=== PATIENT | male | born 1945 | race Caucasian/White ===

== ENCOUNTER 2016-07-18 12:20 | Outpatient (CLI) | payer MEDICARE, OTHER | END 2016-07-18 12:21 | disposition home or self-care (01) | DX: E03.9 Hypothyroidism, unspecified (principal); R74.8 Abnormal levels of other serum enzymes; E29.1 Testicular hypofunction; E23.0 Hypopituitarism; I25.10 Atherosclerotic heart disease of native coronary artery without angina pectoris ==

== ENCOUNTER 2017-06-16 08:00 | Outpatient (CLI) | payer MEDICARE, OTHER ==
[2017-06-16 13:15] LABS: BASOPHILS % (AUTO) 0.5 %; EOSINOPHILS # (AUTO) 0.5 10^3/uL (0.0-0.7); EOSINOPHILS % (AUTO) 8.5 %; HGB - HEMOGLOBIN 16.3 g/dL (14.0-18.0); LYMPHOCYTES # (AUTO) 1.2 10^3/uL (1.5-3.5); LYMPHOCYTES % (AUTO) 18.7 %; MEAN CORPUSCULAR HEMOGLOBIN 33.5 pg (27.0-31.0); MEAN CORPUSCULAR HGB CONC 34.6 g/dL (32.0-36.0); MEAN CORPUSCULAR VOLUME 96.8 fL (80.0-94.0); MEAN PLATELET VOLUME 9.1 fL (7.4-11.4); MONOCYTES # (AUTO) 0.7 10^3/uL (0.0-1.0); MONOCYTES % (AUTO) 10.5 %; NEUTROPHILS # (AUTO) 3.9 10^3/uL (1.5-6.6); NEUTROPHILS % (AUTO) 61.8 %; PLT - PLATELET COUNT 178 10^3/uL (130-450); RED BLOOD COUNT 4.85 10^6/uL (4.70-6.10); RED CELL DISTRIBUTION WIDTH 12.8 % (12.0-15.0); WHITE BLOOD COUNT 6.2 x10^3/uL (4.8-10.8)
[2017-06-16 13:51] LABS: ALBUMIN 4.5 g/dL (3.2-5.5); ALBUMIN/GLOBULIN RATIO 1.5 (1.0-2.2); ALKALINE PHOSPHATASE 40 IU/L (42-121); ALT ALANINE AMINOTRANSFERASE 64 IU/L (10-60); AST ASPARTATE AMINOTRANSFERASE 47 IU/L (10-42); BILIRUBIN,TOTAL 0.8 mg/dL (0.2-1.0); BUN - BLOOD UREA NITROGEN 18 mg/dL (6-20); CALCIUM 9.5 mg/dL (8.5-10.3); CARBON DIOXIDE - CO2 28 mmol/L (21-32); CHLORIDE 97 mmol/L (101-111); CHOLESTEROL 159 mg/dL; GFR - MDRD 74 (>89); GLUCOSE 112 mg/dL (70-100); HDL CHOLESTEROL 53 mg/dL; LDL CHOLESTEROL,CALCULATED 77 mg/dL; LDL/HDL RATIO 1.5 (<3.6); SODIUM 135 mmol/L (135-145); TOTAL PROTEIN 7.6 g/dL (6.7-8.2); VLDL CHOLESTEROL 29 mg/dL
== END 2017-06-16 08:01 | disposition home or self-care (01) ==
LOC: LAB.WCP 08:00
PROVIDERS: ATTEND Family Medicine
DX: R74.8 Abnormal levels of other serum enzymes (principal); E03.9 Hypothyroidism, unspecified; Z12.5 Encounter for screening for malignant neoplasm of prostate; E29.1 Testicular hypofunction; E23.0 Hypopituitarism; E88.81 Metabolic syndrome and other insulin resistance; I25.10 Atherosclerotic heart disease of native coronary artery without angina pectoris
CPT/HCPCS: 36415; 80053; 80061; 84443; 85025; G0103; 83721; 84153

== ENCOUNTER 2018-09-12 08:12 | Outpatient (CLI) | payer MEDICARE, OTHER ==
[2018-09-12 12:43] LABS: BASOPHILS % (AUTO) 0.7 %; EOSINOPHILS # (AUTO) 0.5 10^3/uL (0.0-0.7); EOSINOPHILS % (AUTO) 8.8 %; HGB - HEMOGLOBIN 16.1 g/dL (14.0-18.0); LYMPHOCYTES # (AUTO) 1.2 10^3/uL (1.5-3.5); LYMPHOCYTES % (AUTO) 22.4 %; MEAN CORPUSCULAR HEMOGLOBIN 33.5 pg (27.0-31.0); MEAN CORPUSCULAR HGB CONC 34.6 g/dL (32.0-36.0); MEAN CORPUSCULAR VOLUME 96.8 fL (80.0-94.0); MONOCYTES # (AUTO) 0.6 10^3/uL (0.0-1.0); MONOCYTES % (AUTO) 10.4 %; NEUTROPHILS # (AUTO) 3.1 10^3/uL (1.5-6.6); NEUTROPHILS % (AUTO) 57.7 %; PLT - PLATELET COUNT 188 10^3/uL (130-450); RED BLOOD COUNT 4.81 10^6/uL (4.70-6.10); RED CELL DISTRIBUTION WIDTH 12.7 % (12.0-15.0); WHITE BLOOD COUNT 5.3 x10^3/uL (4.8-10.8)
[2018-09-12 12:57] LABS: ALBUMIN 4.2 g/dL (3.2-5.5); ALBUMIN/GLOBULIN RATIO 1.4 (1.0-2.2); ALKALINE PHOSPHATASE 51 IU/L (42-121); ALT ALANINE AMINOTRANSFERASE 49 IU/L (10-60); AST ASPARTATE AMINOTRANSFERASE 45 IU/L (10-42); BUN - BLOOD UREA NITROGEN 21 mg/dL (6-20); CALCIUM 9.2 mg/dL (8.5-10.3); CARBON DIOXIDE - CO2 27 mmol/L (21-32); CHLORIDE 99 mmol/L (101-111); CHOL/HDL RATIO 2.8 (<5.0); CHOLESTEROL 171 mg/dL; CREATININE 0.8 mg/dL (0.6-1.2); GFR - MDRD 95 (>89); GLUCOSE 121 mg/dL (70-100); HDL CHOLESTEROL 62 mg/dL; LDL CHOLESTEROL,CALCULATED 78 mg/dL; LDL/HDL RATIO 1.3 (<3.6); SODIUM 133 mmol/L (135-145); TOTAL PROTEIN 7.1 g/dL (6.7-8.2); VLDL CHOLESTEROL 31 mg/dL
[2018-09-12 13:01] LABS: THYROID STIMULATING HORMONE 3.56 uIU/mL (0.34-5.60)
[2018-09-12 13:05] LABS: FREE T4 (FREE THYROXINE) 0.74 ng/dL (0.58-1.64)
== END 2018-09-12 08:13 | disposition home or self-care (01) ==
LOC: LAB.WCP 08:12
PROVIDERS: ATTEND Family Medicine
DX: R74.8 Abnormal levels of other serum enzymes (principal); E03.9 Hypothyroidism, unspecified; E23.0 Hypopituitarism; I25.10 Atherosclerotic heart disease of native coronary artery without angina pectoris
CPT/HCPCS: 36415; 80053; 80061; 83036; 83721; 84403; 84439; 84443; 85025

== ENCOUNTER 2019-06-27 08:00 | Outpatient (CLI) | payer MEDICARE, OTHER ==
[2019-06-27 12:08] LABS: BASOPHILS # (AUTO) 0.1 10^3/uL (0.0-0.1); BASOPHILS % (AUTO) 0.7 %; EOSINOPHILS # (AUTO) 0.6 10^3/uL (0.0-0.7); EOSINOPHILS % (AUTO) 8.4 %; HGB - HEMOGLOBIN 16.3 g/dL (14.0-18.0); LYMPHOCYTES # (AUTO) 1.5 10^3/uL (1.5-3.5); LYMPHOCYTES % (AUTO) 20.7 %; MEAN CORPUSCULAR HEMOGLOBIN 33.6 pg (27.0-31.0); MEAN CORPUSCULAR HGB CONC 34.5 g/dL (32.0-36.0); MEAN CORPUSCULAR VOLUME 97.5 fL (80.0-94.0); MEAN PLATELET VOLUME 10.8 fL (7.4-11.4); MONOCYTES # (AUTO) 0.6 10^3/uL (0.0-1.0); NEUTROPHILS # (AUTO) 4.4 10^3/uL (1.5-6.6); NEUTROPHILS % (AUTO) 60.8 %; PLT - PLATELET COUNT 229 10^3/uL (130-450); RED BLOOD COUNT 4.85 10^6/uL (4.70-6.10); RED CELL DISTRIBUTION WIDTH 12.5 % (12.0-15.0); WHITE BLOOD COUNT 7.2 x10^3/uL (4.8-10.8)
[2019-06-27 12:33] LABS: ALBUMIN 4.5 g/dL (3.2-5.5); ALBUMIN/GLOBULIN RATIO 1.6 (1.0-2.2); BILIRUBIN,TOTAL 1.1 mg/dL (0.2-1.0); CALCIUM 9.7 mg/dL (8.5-10.3); CREATININE 0.8 mg/dL (0.6-1.2); TOTAL PROTEIN 7.4 g/dL (6.7-8.2)
== END 2019-06-27 23:59 | disposition home or self-care (01) ==
LOC: LAB.WCP 08:00
PROVIDERS: ATTEND Family Medicine
DX: R10.9 Unspecified abdominal pain (principal); E03.9 Hypothyroidism, unspecified
CPT/HCPCS: 36415; 80053; 84443; 85025

== ENCOUNTER 2019-06-29 12:31 | Outpatient (CLI) | payer MEDICARE, OTHER ==
[2019-06-29] MEDS ORDERED: IOVERSOL 320 100 ML VIAL IVP ONE ×2 (12:52→14:11)
[2019-06-29] MEDS ORDERED: IOVERSOL 320 50 ML VIAL ONE (12:52)
[2019-06-29] MEDS ORDERED: IOVERSOL 320 50 ML VIAL PO ONE (14:11)
--- NOTE | 2019-06-30 00:52 | CT Report ---
Reason: ABD PAIN Procedure Date: 06/29/2019 Accession Number: [id number] / [id number] Procedure: CT - Abdomen/Pelvis W CPT Code: Final Report FULL RESULT: EXAM: CT ABDOMEN AND PELVIS EXAM DATE: 06/29/2019 02:10 PM. CLINICAL HISTORY: Abdominal pain. Constipation. Right upper quadrant pain. COMPARISONS: None. TECHNIQUE: Routine helical CT imaging was performed through the abdomen and pelvis. IV contrast: 100 mL OPTIRAY 320. Enteric contrast: Yes. Reconstructions: Coronal and sagittal. In accordance with CT protocol optimization, one or more of the following dose reduction techniques were utilized for this exam: automated exposure control, adjustment of mA and/or KV based on patient size, or use of iterative reconstructive technique. FINDINGS: Lung Bases: Unremarkable. Liver: Hypodense liver compatible with fatty infiltration. Liver otherwise unremarkable. Gallbladder/Bile Ducts: Partially contracted gallbladder with gallstones. Gallbladder wall is mildly thickened and enhancing. No adjacent inflammatory changes or biliary dilation. Spleen: Normal. Pancreas: Atrophic pancreas. No significant peripancreatic fluid or stranding. Adrenal Glands: Normal. Kidneys: Normal. No masses or hydronephrosis. Peritoneal Cavity/Bowel: Fluid throughout colon. No bowel obstruction or significant bowel wall thickening. Colonic diverticula without acute diverticulitis. No evidence of acute appendicitis. No free fluid, free air or lymphadenopathy. Pelvic Organs: Unremarkable. The bladder and visualized pelvic organs are within normal limits. Vasculature: Atherosclerotic vascular disease including coronary artery calcifications. No abdominal aortic aneurysm. Bones: Degenerative disk disease at L5-S1 and additional degenerative changes of the spine and osseous structures. No acute osseous findings. Other: None. IMPRESSION: 1. Fluid within colon suggestive of diarrheal state, possibly related to enteritis, laxative use or other process. Correlate clinically. 2. No bowel obstruction, significant bowel wall thickening, free fluid or free air. 3. Cholelithiasis within partially contracted gallbladder. There is mild bladder wall thickening/enhancement without adjacent inflammation. Right upper quadrant ultrasound can further assess as clinically indicated. 4. Colonic diverticula without acute diverticulitis. 5. Hepatic steatosis. RADIA
== END 2019-06-29 12:32 | disposition home or self-care (01) ==
LOC: DI 12:31
PROVIDERS: ATTEND Family Medicine
DX: K80.20 Calculus of gallbladder without cholecystitis without obstruction (principal); K57.30 Diverticulosis of large intestine without perforation or abscess without bleeding; K76.0 Fatty (change of) liver, not elsewhere classified
CPT/HCPCS: 74177; Q9967

== ENCOUNTER 2019-12-27 08:47 | Outpatient (CLI) | payer MEDICARE, OTHER ==
[2019-12-27 11:41] LABS: BASOPHILS % (AUTO) 0.5 %; EOSINOPHILS # (AUTO) 0.6 10^3/uL (0.0-0.7); EOSINOPHILS % (AUTO) 9.9 %; HGB - HEMOGLOBIN 16.1 g/dL (14.0-18.0); LYMPHOCYTES # (AUTO) 1.2 10^3/uL (1.5-3.5); LYMPHOCYTES % (AUTO) 21.1 %; MEAN CORPUSCULAR HEMOGLOBIN 34.4 pg (27.0-31.0); MEAN CORPUSCULAR HGB CONC 34.6 g/dL (32.0-36.0); MEAN CORPUSCULAR VOLUME 99.4 fL (80.0-94.0); MEAN PLATELET VOLUME 10.9 fL (7.4-11.4); MONOCYTES # (AUTO) 0.6 10^3/uL (0.0-1.0); MONOCYTES % (AUTO) 10.1 %; NEUTROPHILS # (AUTO) 3.2 10^3/uL (1.5-6.6); NEUTROPHILS % (AUTO) 57.9 %; PLT - PLATELET COUNT 179 10^3/uL (130-450); RED BLOOD COUNT 4.68 10^6/uL (4.70-6.10); RED CELL DISTRIBUTION WIDTH 12.9 % (12.0-15.0); WHITE BLOOD COUNT 5.6 x10^3/uL (4.8-10.8)
[2019-12-27 12:13] LABS: ALBUMIN 4.2 g/dL (3.2-5.5); ALBUMIN/GLOBULIN RATIO 1.5 (1.0-2.2); ALKALINE PHOSPHATASE 59 IU/L (42-121); ALT ALANINE AMINOTRANSFERASE 66 IU/L (10-60); AST ASPARTATE AMINOTRANSFERASE 50 IU/L (10-42); BILIRUBIN,TOTAL 1.1 mg/dL (0.2-1.0); BUN - BLOOD UREA NITROGEN 18 mg/dL (6-20); CALCIUM 9.6 mg/dL (8.5-10.3); CARBON DIOXIDE - CO2 26 mmol/L (21-32); CHLORIDE 98 mmol/L (101-111); CHOL/HDL RATIO 2.5 (<5.0); CHOLESTEROL 163 mg/dL; CREATININE 0.9 mg/dL (0.6-1.2); GLUCOSE 122 mg/dL (70-100); HDL CHOLESTEROL 65 mg/dL; LDL CHOLESTEROL,CALCULATED 73 mg/dL; LDL/HDL RATIO 1.1 (<3.6); SODIUM 135 mmol/L (135-145); VLDL CHOLESTEROL 25 mg/dL
== END 2019-12-27 23:59 | disposition home or self-care (01) ==
LOC: LAB.WCP 08:47
PROVIDERS: ATTEND Family Medicine
DX: E03.9 Hypothyroidism, unspecified (principal); E88.81 Metabolic syndrome and other insulin resistance; I25.10 Atherosclerotic heart disease of native coronary artery without angina pectoris; Z12.5 Encounter for screening for malignant neoplasm of prostate; E29.1 Testicular hypofunction
CPT/HCPCS: 36415; 80053; 80061; 84443; 85025; G0103; 83721; 84153

== ENCOUNTER 2020-04-06 06:55 | Outpatient (CLI) | payer MEDICARE, OTHER ==
--- NOTE | 2020-04-06 10:15 | Ultrasound Report ---
PROCEDURE: Abdomen Limited INDICATIONS: ELEVATED LIVER ENZYMES TECHNIQUE: Real-time focused scanning was performed of the abdominal right upper quadrant, with image documentat ion. COMPARISON: CT abdomen pelvis 06/29/2019 FINDINGS: The liver is at the upper limits of normal measuring 17.7 cm in length. The parenchyma is diffusely heterogeneous, coarse, and mildly hyperechoic. No discrete liver masses. No intra or extrah epatic biliary dilatation. The common duct is 4.1 mm. The gallbladder contains multiple coarse mobile stones and demonstrates a normal wall thickness at 2. 4 mm. No pericholecystic fluid or sonographic Patel sign. The right kidney measures 11.5 cm in length and demonstrates normal cortical thickness and echogenici ty. No hydronephrosis or nephrolithiasis. The visible portion of the pancreas is normal. There is no free fluid in the right upper quadrant. IMPRESSION: 1. Cholelithiasis without CT evidence of acute cholecystitis. 2. Borderline hepatomegaly and hepatic steatosis. 3. No biliary dilatation. Reviewed by: Sheela Knowles MD on 04/06/2020 10:13 AM PST Approved by: Sheela Knowles MD on 04/06/2020 10:13 AM PST Station ID: [id number]
== END 2020-04-06 06:56 | disposition home or self-care (01) ==
LOC: DI 06:55
PROVIDERS: ATTEND Nurse Practitioner
DX: R74.8 Abnormal levels of other serum enzymes (principal); K76.0 Fatty (change of) liver, not elsewhere classified; K80.20 Calculus of gallbladder without cholecystitis without obstruction

== ENCOUNTER 2020-04-17 11:28 | Day surgery (SDC) | payer MEDICARE, OTHER ==
[2020-04-17] MEDS ORDERED: LACTATED RINGERS 1,000 ML IV ONE ×2 (12:06→14:57)
[2020-04-17] MEDS ORDERED: MIDAZOLAM 2 MG/2 ML VIAL ONE ×2 (13:53→14:16)
[2020-04-17] MEDS ORDERED: fentaNYL 250 MCG/5 ML VIAL ONE (13:53)
[2020-04-17 15:03] VITALS: BP 135/77
--- OUTSIDE RECORDS SUMMARY | 2020-04-22 01:36 | EXTERNAL MEDICAL SUMMARY RPT | Continuity of Care Document ---
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 2012-08-17 10:03 HYPERTENSION NOS [facility] 2012-08-17 10:03 OTH MED,LT,CURRENT USE [facility] 2012-09-24 08:[address] [facility] 2012-09-24 08:18 ABN LIVER FUNCTION STUDY [facility] 2013-09-25 08:06 HYPOTHYROIDISM NOS [facility] 2013-09-25 08:06 HYPERLIPIDEMIA NEC/NOS [facility] 2013-09-25 08:[address] [facility] 2013-09-25 08:06 OTH MED,LT,CURRENT USE [facility] 2013-11-06 07:00 TESTICULAR HYPOFUNC [facility] 2013-11-06 07:00 SCREEN MAL NEOP-PROSTATE [facility] 2013-11-19 10:04 TESTICULAR HYPOFUNC [facility] 2013-11-21 08:04 ANTER PITUITARY DIS [facility] 2013-12-06 14:47 TESTICULAR HYPOFUNC [facility] 2014-03-24 07:33 TESTICULAR HYPOFUNC [facility] 2014-04-07 08:40 OTHER DISORDERS OF IRON [facility] METABOLISM 2014-07-18 07:35 TESTICULAR HYPOFUNC [facility] 2014-07-18 07:35 SCREEN MAL NEOP-PROSTATE [facility] 2015-01-06 07:44 TESTICULAR HYPOFUNC NEC [facility] 2015-02-05 08:25 HYPOTHYROIDISM, UNSPECIFIED [facility] 2015-02-05 08:25 HYPERLIPIDEMIA, UNSPECIFIED [facility] 2015-02-05 08:25 ESSENTIAL (PRIMARY) HYPERTENSION 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 2016-02-01 09:31 ABNORMAL LEVELS OF OTHER SERUM [facility] ENZYMES 2016-07-18 12:20 HYPOTHYROIDISM, UNSPECIFIED [facility] 2016-07-18 12:20 HYPOPITUITARISM [facility] 2016-07-18 12:20 TESTICULAR HYPOFUNCTION [facility] 2016-07-18 12:20 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 2016-07-18 12:20 ABNORMAL LEVELS OF OTHER SERUM [facility] ENZYMES 2017-06-16 08:00 HYPOTHYROIDISM, UNSPECIFIED [facility] 2017-06-16 08:00 HYPOPITUITARISM [facility] 2017-06-16 08:00 TESTICULAR HYPOFUNCTION [facility] 2017-06-16 08:00 METABOLIC SYNDROME [facility] 2017-06-16 08:00 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 2017-06-16 08:00 ABNORMAL LEVELS OF OTHER SERUM [facility] ENZYMES 2017-06-16 08:00 ENCOUNTER FOR SCREENING FOR [facility] MALIGNANT NEOPLASM OF PROSTATE 2018-09-12 08:12 HYPOTHYROIDISM, UNSPECIFIED [facility] 2018-09-12 08:12 HYPOPITUITARISM [facility] 2018-09-12 08:12 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 2019-12-27 08:47 ENCOUNTER FOR SCREENING FOR [facility] MALIGNANT NEOPLASM OF PROSTATE 2020-03-24 00:00:00 US [facility]BDOMEN LIMITED [facility] 2020-03-24 00:00:00 Alcohol intake [facility] [place] [facility] 2020-03-24 00:00:00 Tobacco use and exposure [facility] 2020-03-24 00:00:00 Exercise [facility] 2020-03-24 00:00:00 Details of drug misuse behavior [facility] [place] [facility] 2020-03-24 00:00:00 [facility] [place] [facility] 2020-03-24 00:00:00 Tobacco smoking status [facility] [place] [facility] 2020-03-24 00:00:00 [facility] [place] [facility] 2020-03-25 00:00:00 [facility] [place] [facility] 2020-03-25 00:00:00 [facility] [place] [facility] 2020-03-25 00:00:00 [facility] [place] [facility] 2020-03-25 00:00:00 Details of drug misuse behavior idb [facility] [place] [facility] 2020-03-25 00:00:00 [facility] [place] [facility] 2020-03-25 00:00:00 Tobacco smoking status [facility] [place] [facility] 2020-03-25 00:00:00 [facility] [place] [facility] 2020-04-06 06:55 FATTY (CHANGE OF) LIVER, NOT [facility] ELSEWHERE CLASSIFIED 2020-04-06 06:55 CALCULUS OF GALLBLADDER W/O [facility] CHOLECYSTITIS W/O OBSTRUCTION 2020-04-06 06:55 ABNORMAL LEVELS OF OTHER [facility] ENZYMES 2020-04-07 00:00:00 Calculus of gallbladder without idb [facility] Care mention of cholecystitis, without [place] [facility] mention of obstruction 2020-04-07 00:00:00 Calculus of gallbladder without idb [facility] Care cholecystitis without obstruction [facility] 2020-04-07 00:00:00 Gallstone [facility] 2020-04-15 00:00:00 Alcohol intake [facility] 2020-04-15 00:00:00 [facility] 2020-04-15 00:00:00 Exercise [facility] [place] [facility] 2020-04-15 00:00:00 Details of drug misuse behavior [facility] [place] [facility] 2020-04-15 00:00:00 Alcohol use [facility] [place] [facility] 2020-04-15 00:00:00 Tobacco smoking status [facility] [place] [facility] 2020-04-15 00:00:00 Former smoker [facility] [place] [facility] Allergies date description facility VANCOMYCIN [facility] NO KNOWN ENVIRONMENTAL ALLERGIES [facility] PENICILLINS [facility] NO KNOWN ALLERGIES [facility] Penicillins [facility] NO KNOWN ENVIRONMENTAL ALLERGIES [facility] NO ALLERGY INFORMATION AVAILABLE [facility] ADHESIVE \T\ TAPE [facility] NITRATES, ORGANIC [facility] NO KNOWN ENVIRONMENTAL ALLERGIES [facility] PENICILLINS [facility] SULFA (SULFONAMIDE ANTIBIOTICS) [facility] [id number] REDUCTASE INHIBITORS [facility] NO KNOWN ALLERGIES [facility] ALCOHOL [facility] SOYBEAN [facility] CYCLOBENZAPRINE [facility] DULOXETINE [facility] SULFA ANTIBIOTICS [facility] HYDROCODONE-ACETAMINOPHEN [facility] Penicillins [facility] Medications date description facility 2020-03-24 00:00:00 [facility] [place] [facility] 2020-03-24 00:00:00 [facility] [place] [facility] 2020-03-24 00:00:00 null [facility] [place] [facility] 2020-03-24 00:00:00 [facility] [place] [facility] 2020-03-24 00:00:00 ROSUVASTATIN CALCIUM [facility] Pr imary Care [place] [facility] 2020-03-24 00:00:00 AMLODIPINE BESYLATE [facility] Nathalie [facility]i [facility] [place] [facility] 2020-03-24 00:00:00 AMLODIPINE [facility]ATE [facility] N[facility]alie [facility] [place] [facility] 2020-03-24 00:00:00 ROSUVASTATIN CALCIUM [facility] Pr imary [facility] [place] [facility] 2020-03-25 00:00:00 null [facility] [place] [facility] 2020-03-25 00:00:00 [facility] [place] [facility] 2020-03-25 00:00:00 NA SULFATE-K SULFATE-MG SULF [facility] [place] [facility] 2020-03-25 00:00:00 NA SULFATE-K SULFATE-MG SULF [facility] [place] [facility] Procedures date description facility 2020-03-24 00:00:00 US ABDOMEN LIMITED [facility] [place] [facility] date description facility 2020-03-24 00:00:00 [facility] [place] [facility] Results test status date ordered by attending specimen inga e colonoscopy unknown 2020-04-17 unknown unknown unknown 00:00:00 Colonoscopy_procedur unknown 2020-04-17 unknown unknown u nknown e_ 00:00:00 facility observation status value reference units lab abnor mal line range code notes [facility] colonoscopy unknown done unknown _[id number] nknown unknown [facility] [place] [facility] Colonoscopy_ unknown done unknown [id number] unknown unknown Primary Care procedure_ 1001 [place] [facility] Social History date description facility 2020-03-24 00:00:00 [facility] [place] [facility] date description facility 2020-03-25 00:00:00 [facility] [place] [facility] date description facility 2020-04-15 00:00:00 [facility] [place] [facility] Social History date description facility 2020-03-24 00:00:00 [facility] [place] [facility] date description facility 2020-03-25 00:00:00 [facility] [place] [facility] date description facility 2020-04-15 00:00:00 [facility] [place] [facility] date description facility [id number]
== END 2020-04-17 11:29 | disposition home or self-care (01) ==
LOC: SDS 11:28
PROVIDERS: ATTEND Surgery
PROC: 0DBL8ZZ Excision of Transverse Colon, Via Natural or Artificial Opening Endoscopic (ICD-10-PCS; 2020-04-17)
PROC: 0DBH8ZZ Excision of Cecum, Via Natural or Artificial Opening Endoscopic (ICD-10-PCS; principal; 2020-04-17 12:45)
DX: Z12.11 Encounter for screening for malignant neoplasm of colon (principal); D12.1 Benign neoplasm of appendix; D12.3 Benign neoplasm of transverse colon; Z79.82 Long term (current) use of aspirin; K57.30 Diverticulosis of large intestine without perforation or abscess without bleeding; E29.1 Testicular hypofunction; E34.8 Other specified endocrine disorders; I25.10 Atherosclerotic heart disease of native coronary artery without angina pectoris; Z95.1 Presence of aortocoronary bypass graft; Z79.899 Other long term (current) drug therapy; E03.9 Hypothyroidism, unspecified; Z96.652 Presence of left artificial knee joint; Z87.891 Personal history of nicotine dependence
CPT/HCPCS: 45380; J3010; J7120; 88305

== ENCOUNTER 2020-04-24 08:46 | Outpatient (CLI) | payer MEDICARE, OTHER | END 2020-04-24 08:47 | disposition home or self-care (01) | LOC: COV 08:46 | PROVIDERS: ATTEND Surgery | DX: Z01.812 Encounter for preprocedural laboratory examination (principal); Z20.822 Contact with and (suspected) exposure to COVID-19 ==

== ENCOUNTER 2020-04-28 11:16 | Day surgery (SDC) | payer MEDICARE, OTHER ==
[~2020-04-28 11:16] MED LIST: CLINDAMYCIN 600 MG/50 ML 50 ML IV ONE
[2020-04-28] MEDS ORDERED: LACTATED RINGERS 1,000 ML IV ONE ×2 (12:00→15:41)
--- NOTE | 2020-04-28 13:43 | ANESTHESIA ---
Pre-Anesthesia VS, & Labs - Diagnosis chronic cholecystitis - Procedure lap kasey Vital Signs: Temp Pulse Resp BP Pulse Ox 36.4 C L 73 18 147/81 H 96 04/28/20 11:30 04/28/20 11:30 04/28/20 11:30 04/28/20 11:30 04/28/20 11:30 Height: 5 ft 11 in Weight (kg): 102 kg Body Mass Index: 31.4 BMI Classification: Obese - NPO >8 hours Home Medications and Allergies Home Medications: Ambulatory Orders Rosuvastatin Calcium [Crestor] 40 mg PO 04/23/20 amLODIPine [Norvasc] 5 mg PO ONCE 04/23/20 Hydrochlorothiazide 12.5 mg PO DAILY 04/16/20 Levothyroxine Sodium [Levothyroxine] 50 mcg PO DAILY 04/16/20 Lisinopril [Zestril] 40 mg PO DAILY 04/16/20 Metoprolol Tartrate [Lopressor] 50 mg PO BID 04/16/20 Rosuvastatin Calcium [Crestor] 40 mg PO 04/23/20 amLODIPine [Norvasc] 5 mg PO ONCE 04/23/20 Allergies/Adverse Reactions: Allergies Allergy/AdvReac Type Severity Reaction Status Date / Time Penicillins Allergy Severe Unknown Verified 04/16/20 13:41 Anes History & Medical History - Anesthetic History Anesthesia Complications: reports: No previous complications - Medical History Cardiovascular: reports: Hypertension, High cholesterol, Coronary artery disease, [place] Pulmonary: reports: None Gastrointestinal: reports: Colon polyps, Cholelithiasis Urinary: reports: None Neuro: reports: None Musculoskeletal: reports: Osteoarthritis Endocrine/Autoimmune: reports: HyPOthyroidism Skin: reports: Other Psychosocial: reports: Alcohol (daily 2-3 drinks) History of Cancer?: No - Surgical History Eyes Ears Nose Throat (EENT): Cataracts, Tonsil/Adenoidectomy Cardiothoracic: CABG Orthopedic: Knee replacement Dermatologic: Skin cancer surgery Exam General: Alert, Oriented x3, Cooperative, No acute distress Dental: Dentures full Upper, Dentures full Lower Mouth Openin Fingerbreadth Neck Mobility: Normal Mallampati classification: III Respiratory: Lungs clear, Normal breath sounds, No respiratory distress, No accessory muscle use Cardiovascular: Regular rate, Normal S1, Normal S2, No murmurs Mental/Cognitive Status: Alert/Oriented X3, Normal for patient Cognitive Status: Within normal limits Plan Anesthesia Type: General Consent for Procedure(s) Verified and Reviewed: Yes Code Status: Attempt Resuscitation ASA classification: 3-Severe systemic disease Is this case an emergency?: No
[2020-04-28] MEDS ORDERED: BUPIVACAINE 0.25% PF 30 ML VIAL ONE (13:50)
[2020-04-28] MEDS ORDERED: fentaNYL 100 MCG/2 ML VIAL ONE (13:59)
[2020-04-28] MEDS ORDERED: MIDAZOLAM 2 MG/2 ML VIAL ONE (13:59)
[2020-04-28] MEDS ORDERED: ROCURONIUM 50 MG/5 ML VIAL ONE (13:59)
[2020-04-28] MEDS ORDERED: PROPOFOL 200 MG/20 ML VIAL IVP ONE (13:59)
[2020-04-28] MEDS ORDERED: LIDOCAINE-MPF 2% 5 ML VIAL ONE (13:59)
[2020-04-28] MEDS ORDERED: BUPIVACAINE 0.25% PF 30 ML VIAL SUBQ ONE (14:40)
[2020-04-28] MEDS ORDERED: MORPHINE 2 MG/ML CARPUJECT IVP PRN (14:54)
[2020-04-28] MEDS ORDERED: fentaNYL 100 MCG/2 ML VIAL IVP PRN (14:54)
[2020-04-28] MEDS ORDERED: ATROPINE ABBOJECT 1 MG/10 ML SYRINGE IVP PRN (14:54)
[2020-04-28] MEDS ORDERED: ePHEDrine 50 MG/ML VIAL IVP PRN (14:54)
[2020-04-28] MEDS ORDERED: NALOXONE 0.4 MG/ML VIAL IVP PRN (14:54)
[2020-04-28] MEDS ORDERED: HYDROmorphone 0.5 MG/0.5 ML SYRINGE IVP PRN (14:54)
[2020-04-28] MEDS ORDERED: ONDANSETRON 4 MG/2 ML VIAL IVP PRN ×2 (14:54→16:00)
[2020-04-28] MEDS ORDERED: LACTATED RINGERS 1,000 ML IV SCH (15:00)
[2020-04-28] MEDS ORDERED: SUGAMMADEX 200 MG/2 ML VIAL IVP ONE (15:31)
[2020-04-28] MEDS ORDERED: KETOROLAC 15 MG/ML VIAL ONE (15:53)
[2020-04-28] MEDS ORDERED: HYDROcod/ACETAM 5/325 MG TABLET PO PRN (16:00)
--- NOTE | 2020-04-28 16:01 | OPERATIVE REPORT ---
Operative Report - General Procedure Date: 04/28/20 Planned Procedure: lap kasey Pre-Op Diagnosis: chronic cholecystitis Procedure Performed: lap kasey Post Op Diagnosis: chronic cholecystitis - Procedure Note Primary Surgeon: sabrina walls md Secondary Surgeon: none Anesthesia Technique: General ET tube, Local Pathology: gallbladder Estimated Blood Loss (mL): 10 Complications: none
[2020-04-28 17:04] VITALS: BP 106/62
--- NOTE | 2020-04-28 17:21 | ANESTHESIA POST OP EVALUATION ---
Anesthesia Post Eval - Post Anesthesia Eval Vitals: Last Vital Signs Temp 36.7 C 04/28/20 17:00 Pulse 65 04/28/20 17:00 Resp 17 04/28/20 17:00 BP 106/62 04/28/20 17:00 Pulse Ox 96 04/28/20 17:00 CV Function Including HR & BP: positive: Stable Pain Control: positive: Satisfactory Nausea & Vomiting: positive: Negative Mental Status: positive: Baseline Respiratory Status: Airway Patent Hydration Status: Satisfactory Anesthesia Complications: positive: None
--- NOTE | 2020-04-29 06:37 | OPERATIVE REPORT ---
DATE OF SERVICE: 04/28/2020 Physician: Madhu Mendez MD PREOPERATIVE DIAGNOSIS: Chronic cholecystitis. POSTOPERATIVE DIAGNOSIS: Chronic cholecystitis. PROCEDURE: Laparoscopic cholecystectomy. SURGEON: Madhu Mendez MD FAMILY PROTECTION SPECIALIST: None. ANESTHESIA 1. General endotracheal anesthesia. 2. Local anesthesia with Marcaine. COMPLICATIONS: None. SPECIMENS: Gallbladder. ESTIMATED BLOOD LOSS: 10 mL DRAINS: None. FINDINGS: Chronic cholecystitis. Narrow cystic duct. Mildly fatty and nodular liver without cirrhosis. INDICATIONS FOR PROCEDURE: The patient is a 75-year-old gentleman with chronic cholecystitis type symptoms, progressive over the last several years. He presents for laparoscopic cholecystectomy. He has not had signs or symptoms of choledocholithiasis. Risks discussed, alternatives discussed. All questions answered and consent obtained. DETAILS OF PROCEDURE: The patient was properly identified, brought to the operating room, and placed in supine position. He voided prior to surgery. General endotracheal anesthesia was induced. Sequential compression devices were placed. He was prepped and draped in a sterile fashion and given preoperative antibiotics. An infraumbilical incision was made. Dissection proceeded down to the fascia. The fascia was incised, lifted upwards and abdomen entered with the Veress needle. CO2 was insufflated to a pressure of 15. An 11 mm trocar was placed, followed by a 30-degree scope. There was no evidence of injury from Veress needle or trocar placement. Under direct vision, two 5 mm trocars were placed in the right upper quadrant and an 11 mm trocar was placed in the epigastrium. The gallbladder was fairly tense and quite thick walled. It was retracted anterior. Lateral attachments were partially taken down further mobilizing the gallbladder more anterior and away from duodenum. The infundibulum or Ana Lilia's pouch area was retracted right lateral and caudad. With careful dissection and minimal use of cautery, a large bare cystic plate area and window was created. The cystic duct and cystic artery were then both clipped at the gallbladder and additionally 2-3 times proximally and sharply divided. The gallbladder was mobilized off from the bed of the liver. There was scant spillage of bile; however, no spillage of stone material. The gallbladder was placed in an EndoCatch bag and brought out through the epigastrium. The abdomen was thoroughly irrigated. Hemostasis was assured. There were no apparent complications. Fascia in the epigastrium was closed with a [id number] 0 Vicryl. Trocars were removed under direct vision and CO2 evacuated. Fascia at the infraumbilical site was closed with a running 0 Vicryl suture. Skin was closed with buried interrupted and running 4-0 Monocryl subcuticular suture. Dressings were applied. He tolerated the procedure very well. TD: 04/28/2020 19:56 [facility]
== END 2020-04-28 11:17 | disposition home or self-care (01) ==
LOC: SDS 11:16
PROVIDERS: ATTEND Surgery
PROC: 0FT44ZZ Resection of Gallbladder, Percutaneous Endoscopic Approach (ICD-10-PCS; principal; 2020-04-28 12:30)
DX: K80.10 Calculus of gallbladder with chronic cholecystitis without obstruction (principal); K76.0 Fatty (change of) liver, not elsewhere classified; I10 Essential (primary) hypertension; I25.10 Atherosclerotic heart disease of native coronary artery without angina pectoris; I25.2 Old myocardial infarction; E66.9 Obesity, unspecified; Z68.31 Body mass index [BMI] 31.0-31.9, adult; Z87.891 Personal history of nicotine dependence
CPT/HCPCS: 47562; A9270; J7120

== ENCOUNTER 2020-06-10 08:00 | Outpatient (CLI) | payer MEDICARE, OTHER ==
[2020-06-10 12:07] LABS: BASOPHILS % (AUTO) 0.6 %; EOSINOPHILS # (AUTO) 0.5 10^3/uL (0.0-0.7); EOSINOPHILS % (AUTO) 9.7 %; HCT - HEMATOCRIT 45.7 % (42.0-52.0); HGB - HEMOGLOBIN 15.4 g/dL (14.0-18.0); LYMPHOCYTES # (AUTO) 1.1 10^3/uL (1.5-3.5); LYMPHOCYTES % (AUTO) 20.8 %; MEAN CORPUSCULAR HEMOGLOBIN 33.7 pg (27.0-31.0); MEAN CORPUSCULAR HGB CONC 33.7 g/dL (32.0-36.0); MEAN PLATELET VOLUME 10.9 fL (7.4-11.4); MONOCYTES # (AUTO) 0.6 10^3/uL (0.0-1.0); MONOCYTES % (AUTO) 10.5 %; NEUTROPHILS # (AUTO) 3.1 10^3/uL (1.5-6.6); NEUTROPHILS % (AUTO) 58.2 %; PLT - PLATELET COUNT 179 10^3/uL (130-450); RED BLOOD COUNT 4.57 10^6/uL (4.70-6.10); RED CELL DISTRIBUTION WIDTH 12.4 % (12.0-15.0); WHITE BLOOD COUNT 5.2 x10^3/uL (4.8-10.8)
[2020-06-10 12:44] LABS: ALBUMIN 4.5 g/dL (3.2-5.5); ALBUMIN/GLOBULIN RATIO 1.6 (1.0-2.2); ALKALINE PHOSPHATASE 54 IU/L (42-121); ALT ALANINE AMINOTRANSFERASE 58 IU/L (10-60); AST ASPARTATE AMINOTRANSFERASE 53 IU/L (10-42); BILIRUBIN,TOTAL 0.9 mg/dL (0.2-1.0); BUN - BLOOD UREA NITROGEN 18 mg/dL (6-20); CALCIUM 9.9 mg/dL (8.5-10.3); CARBON DIOXIDE - CO2 29 mmol/L (21-32); CHLORIDE 97 mmol/L (101-111); CHOL/HDL RATIO 2.1 (<5.0); CHOLESTEROL 165 mg/dL; CREATININE 0.9 mg/dL (0.6-1.2); GFR - MDRD 83 (>89); GLUCOSE 123 mg/dL (70-100); HDL CHOLESTEROL 78 mg/dL; LDL CHOLESTEROL,CALCULATED 63 mg/dL; LDL/HDL RATIO 0.8 (<3.6); SODIUM 135 mmol/L (135-145); TOTAL PROTEIN 7.4 g/dL (6.7-8.2); TRIGLYCERIDES 121 mg/dL; VLDL CHOLESTEROL 24 mg/dL
[2020-06-10 12:57] LABS: THYROID STIMULATING HORMONE 4.55 uIU/mL (0.34-5.60)
== END 2020-06-10 23:59 | disposition home or self-care (01) ==
LOC: LAB.WCP 08:00
PROVIDERS: ATTEND Family Medicine
DX: E03.9 Hypothyroidism, unspecified (principal); I25.10 Atherosclerotic heart disease of native coronary artery without angina pectoris; R74.8 Abnormal levels of other serum enzymes; E29.1 Testicular hypofunction
CPT/HCPCS: 36415; 80053; 80061; 82105; 83721; 84403; 84443; 85025

== ENCOUNTER 2021-01-09 09:49 | Observation (INO) | payer MEDICARE, OTHER ==
[2021-01-09] MEDS ORDERED: PANTOPRAZOLE 40 MG VIAL IVP STA (10:12)
--- NOTE | 2021-01-09 10:12 | ED Physician Documentation ---
PD HPI ABD PAIN - Stated complaint Stated Complaint: MALE /SIDE PX - Chief complaint Chief Complaint: Abd Pain - History obtained from History obtained from: Patient - Additional information Additional information: 75-year-old gentleman with history of three-vessel bypass at age 52 and cholecystectomy and normal colonoscopy earlier this year presents with central and right-sided abdominal pain, dark and tarry stools and weakness for the last week. He does take NSAIDs about once a week. No blood thinners except for aspirin. No history of GI bleeding. Has never had an upper endoscopy. He is a daily drinker but has not been drinking in the last week as he is been too sick. No history of liver disease. Review of Systems Ten Systems: 10 systems reviewed and negative Eyes: reports: Reviewed and negative Ears: reports: Reviewed and negative Nose: reports: Reviewed and negative PD PAST MEDICAL HISTORY - Past Medical History Neuro: None - Present Medications Home Medications: Ambulatory Orders Medication Instructions Recorded Confirmed Levothyroxine Sodium 50 mcg PO DAILY 04/16/20 01/09/21 [Levothyroxine] Lisinopril [Zestril] 40 mg PO DAILY 04/16/20 01/09/21 Metoprolol Tartrate [Lopressor] 50 mg PO BID 04/16/20 01/09/21 hydroCHLOROthiazide 12.5 mg PO DAILY 04/16/20 01/09/21 [Hydrochlorothiazide] Rosuvastatin Calcium [Crestor] 40 mg PO DAILY 04/23/20 01/09/21 amLODIPine [Norvasc] 5 mg PO DAILY 04/23/20 01/09/21 Ondansetron Odt [Zofran Odt] 4 mg PO Q6H PRN #15 tablet 04/28/20 01/09/21 - Allergies Allergies/Adverse Reactions: Allergies Allergy/AdvReac Type Severity Reaction Status Date / Time Penicillins Allergy Severe Unknown Verified 01/09/21 10:01 PD ED PE NORMAL - Vitals Vital signs reviewed: Yes - General General: Alert and oriented X 3, Other (Appears pale but also has vitiligo so some variation in skin tone) - HEENT HEENT: PERRL, EOMI - Neck Neck: Supple, no meningeal sign, No bony TTP - Cardiac Cardiac: RRR, No murmur - Respiratory Respiratory: No respiratory distress, Clear bilaterally - Abdomen Abdomen: Soft, Non tender - Rectal Rectal: Other (Black stool was sent to the lab for guaiac test) - Back Back: No CVA TTP, No spinal TTP - Derm Derm: Warm and dry, Other (He has vitiligo) - Neuro Neuro: Alert and oriented X 3, Normal speech Results - Vitals Vitals: Vital Signs - 24 hr 01/09/21 01/09/21 01/09/21 09:55 10:52 11:38 Temperature 36.5 C Heart Rate 88 72 74 Respiratory 18 14 14 Rate Blood Pressure 116/69 136/73 H 99/71 O2 Saturation 98 95 100 01/09/21 12:32 Temperature Heart Rate 72 Respiratory 12 Rate Blood Pressure 117/58 L O2 Saturation 98 Oxygen O2 Source Room air - Labs Labs: Microbiology 01/09/21 11:00 Occult Blood - Final Stool Laboratory Tests 01/09/21 01/09/21 01/09/21 10:22 10:22 10:22 WBC 9.3 RBC 3.72 L Hgb 12.3 L Hct 35.9 L MCV 96.5 H MCH 33.1 H MCHC 34.3 RDW 13.2 Plt Count 230 MPV 10.4 Neut # (Auto) 6.7 H Lymph # (Auto) 1.7 [place] # (Auto) 0.7 Eos # (Auto) 0.2 Baso # (Auto) 0.0 Absolute Nucleated RBC 0.00 Nucleated RBC % 0.0 Sodium 136 Potassium 3.6 Chloride 98 L Carbon Dioxide 26 Anion Gap 12.0 BUN 47 H Creatinine 0.9 Estimated GFR (MDRD) 83 L Glucose 141 H Calcium 9.3 Total Bilirubin 1.2 H AST 27 ALT 30 Alkaline Phosphatase 47 Total Protein 6.5 L Albumin 4.1 Globulin 2.4 Albumin/Globulin Ratio 1.7 Lipase 35 Urine Color Urine Clarity Urine pH Ur Specific [place] Urine Protein Urine Glucose (UA) Urine Ketones Urine Occult Blood Urine Nitrite Urine Bilirubin Urine Urobilinogen Ur Leukocyte Esterase Ur Microscopic Review Urine Culture Comments Nasal Adenovirus (PCR) Nasal B. parapertussis DNA (PCR) Nasal Coronavir 229E PCR Nasal Coronavir HKU1 PCR Nasal Coronavir NL63 PCR Nasal Coronavir OC43 PCR Nasal Enterovir/Rhinovir PCR Nasal Influenza B PCR Nasal Influenza A PCR Nasal Parainfluen 1 PCR Nasal Parainfluen 2 PCR Nasal Parainfluen 3 PCR Nasal Parainfluen 4 PCR Nasal RSV (PCR) Nasal B.pertussis DNA PCR Nasal C.pneumoniae (PCR) Tim Human Metapneumo PCR Nasal M.pneumoniae (PCR) Nasal SARS-CoV-2 (PCR) Blood Type A NEGATIVE Blood Type Recheck Antibody Screen NEGATIVE 01/09/21 01/09/21 01/09/21 11:37 11:49 12:27 WBC RBC Hgb Hct MCV MCH MCHC RDW Plt Count MPV Neut # (Auto) Lymph # (Auto) [place] # (Auto) Eos # (Auto) Baso # (Auto) Absolute Nucleated RBC Nucleated RBC % Sodium Potassium Chloride Carbon Dioxide Anion Gap BUN Creatinine Estimated GFR (MDRD) Glucose Calcium Total Bilirubin AST ALT Alkaline Phosphatase Total Protein Albumin Globulin Albumin/Globulin Ratio Lipase Urine Color DARK YELLOW Urine Clarity CLEAR Urine pH 7.5 Ur Specific [place] 1.015 Urine Protein TRACE Urine Glucose (UA) NEGATIVE Urine Ketones TRACE Urine Occult Blood NEGATIVE Urine Nitrite NEGATIVE Urine Bilirubin NEGATIVE Urine Urobilinogen 4 H Ur Leukocyte Esterase NEGATIVE Ur Microscopic Review NOT INDICATED Urine Culture Comments NOT INDICATED Nasal Adenovirus (PCR) NOT DETECTED Nasal B. parapertussis DNA (PCR) NOT DETECTED Nasal Coronavir 229E PCR NOT DETECTED Nasal Coronavir HKU1 PCR NOT DETECTED Nasal Coronavir NL63 PCR NOT DETECTED Nasal Coronavir OC43 PCR NOT DETECTED Nasal Enterovir/Rhinovir PCR NOT DETECTED Nasal Influenza B PCR NOT DETECTED Nasal Influenza A PCR NOT DETECTED Nasal Parainfluen 1 PCR NOT DETECTED Nasal Parainfluen 2 PCR NOT DETECTED Nasal Parainfluen 3 PCR NOT DETECTED Nasal Parainfluen 4 PCR NOT DETECTED Nasal RSV (PCR) NOT DETECTED Nasal B.pertussis DNA PCR NOT DETECTED Nasal C.pneumoniae (PCR) NOT DETECTED Tim Human Metapneumo PCR NOT DETECTED Nasal M.pneumoniae (PCR) NOT DETECTED Nasal SARS-CoV-2 (PCR) NOT DETECTED Blood Type Blood Type Recheck A NEGATIVE Antibody Screen PD MEDICAL DECISION MAKING - ED course ED course: 75-year-old gentleman who does drink alcohol and occasionally uses NSAIDs presents with what sounds like upper GI bleeding, likely related to ulcer disease. He is guaiac positive from below. His hemoglobin is pretty good at 12.3, but notes that on prior labs it looks like 15 is his baseline so he has dr opped a few units. Case discussed by phone with Dr. Mendez, our on-call surgeon at 11:50 AM and he will consult. Call placed to hospitalist for admission at 11:53 AM. Departure - Departure Disposition: ED Place in Observation Clinical Impression: Upper GI bleed Condition: Fair Discharge Date/Time: 01/09/21 14:32
[2021-01-09 10:32] LABS: BASOPHILS % (AUTO) 0.4 %; EOSINOPHILS # (AUTO) 0.2 10^3/uL (0.0-0.7); EOSINOPHILS % (AUTO) 1.7 %; HCT - HEMATOCRIT 35.9 % (42.0-52.0); HGB - HEMOGLOBIN 12.3 g/dL (14.0-18.0); LYMPHOCYTES # (AUTO) 1.7 10^3/uL (1.5-3.5); LYMPHOCYTES % (AUTO) 18.6 %; MEAN CORPUSCULAR HEMOGLOBIN 33.1 pg (27.0-31.0); MEAN CORPUSCULAR HGB CONC 34.3 g/dL (32.0-36.0); MEAN CORPUSCULAR VOLUME 96.5 fL (80.0-94.0); MEAN PLATELET VOLUME 10.4 fL (7.4-11.4); MONOCYTES # (AUTO) 0.7 10^3/uL (0.0-1.0); MONOCYTES % (AUTO) 7.5 %; NEUTROPHILS # (AUTO) 6.7 10^3/uL (1.5-6.6); NEUTROPHILS % (AUTO) 71.5 %; PLT - PLATELET COUNT 230 10^3/uL (130-450); RED BLOOD COUNT 3.72 10^6/uL (4.70-6.10); RED CELL DISTRIBUTION WIDTH 13.2 % (12.0-15.0); WHITE BLOOD COUNT 9.3 x10^3/uL (4.8-10.8)
[2021-01-09 10:45] LABS: ALBUMIN 4.1 g/dL (3.2-5.5); ALBUMIN/GLOBULIN RATIO 1.7 (1.0-2.2); BILIRUBIN,TOTAL 1.2 mg/dL (0.2-1.0); CALCIUM 9.3 mg/dL (8.5-10.3); CREATININE 0.9 mg/dL (0.6-1.2); POTASSIUM 3.6 mmol/L (3.5-5.0); TOTAL PROTEIN 6.5 g/dL (6.7-8.2)
[2021-01-09 11:51] LABS: BILIRUBIN,URINE NEGATIVE (NEGATIVE); GLUCOSE, URINE (UA) NEGATIVE (NEGATIVE); KETONES,URINE (UA) TRACE mg/dL (NEGATIVE); LEUKOCYTE ESTERASE, URINE NEGATIVE (NEGATIVE); NITRITE,URINE NEGATIVE (NEGATIVE); OCCULT BLOOD,URINE NEGATIVE (NEGATIVE); PH,URINE 7.5 PH (5.0-7.5); PROTEIN,URINE TRACE mg/dL (NEGATIVE); UROBILINOGEN,URINE 4 E.U./dL (NORMAL)
[2021-01-09 12:02] LABS: CLARITY,URINE CLEAR (CLEAR)
[2021-01-09] MEDS ORDERED: ONDANSETRON 4 MG/2 ML VIAL IVP PRN (12:34)
[2021-01-09] MEDS ORDERED: SODIUM CHLORIDE FLUSH 0.9% 10 ML SYRINGE IVP PRN (12:34)
--- NOTE | 2021-01-09 12:50 | CONSULTATION NOTE ---
Referring Provider Consult Date: 01/09/21 Chief Complaint - Chief Complaint Chief Complaint: Abdominal pain and dark stool for 1 week. History of Present Illness - History Obtained From Records Reviewed: yes History obtained from: pt Exam Limitations: none - History of Present Illness HPI Comment/Other: He has had progressive right upper quadrant and epigastric pain for the last week associated with dark stool. He has had upper abdominal discomfort on and off for the last few months and first noticed upper abdominal discomfort worse after eating many months ago. He denies pain on swallowing, trouble swallowing, nausea. He has had 20 to 25 lbs weight loss over the last few months. He takes aspirin. Perhaps weekly nsaid use. He uses occasional tums. No daily H2 silvana or PPI type medication. [facility] Gallbladder surgery and colonoscopy earlier this year. History - Past Medical History Neuro: reports: None MRSA Hx?: No Meds/Allgy - Home Medications Home Medications: Ambulatory Orders Medication Instructions Recorded Confirmed Levothyroxine Sodium 50 mcg PO DAILY 04/16/20 04/23/20 [Levothyroxine] Lisinopril [Zestril] 40 mg PO DAILY 04/16/20 04/23/20 Metoprolol Tartrate [Lopressor] 50 mg PO BID 04/16/20 04/23/20 hydroCHLOROthiazide 12.5 mg PO DAILY 04/16/20 04/23/20 [Hydrochlorothiazide] Rosuvastatin Calcium [Crestor] 40 mg PO 04/23/20 amLODIPine [Norvasc] 5 mg PO ONCE 04/23/20 04/23/20 HYDROcod/ACETAM 5/325 [[place] 5/325] 1 each PO Q6H PRN #35 tablet 04/28/20 Ondansetron Odt [Zofran Odt] 4 mg PO Q6H PRN #15 tablet 04/28/20 - Allergies Allergies/Adverse Reactions: Allergies Allergy/AdvReac Type Severity Reaction Status Date / Time Penicillins Allergy Severe Unknown Verified 01/09/21 10:01 Review of Systems - Other Findings Other Findings: 10 pt ros as above otherwise unremarkable Exam - Vital Signs Reviewed Vital Signs: Yes Vital Signs: Vital Signs x48h Temp Pulse Resp BP Pulse Ox 01/09/21 12:32 72 12 117/58 L 98 01/09/21 11:38 74 14 99/71 100 01/09/21 10:52 72 14 136/73 H 95 01/09/21 09:55 36.5 C 88 18 116/69 98 - Physical Exam General Appearance: positive: No acute distress, Alert Eyes Bilateral: positive: PERRL, EOMI Neck: positive: No JVD Respiratory: positive: No respiratory distress Abdomen: positive: Non-tender, No distention Neurologic/Psychiatric: positive: Oriented x3 Conclusion/Plan - Problem List (1) Upper GI bleed Conclusion/Plan: He appears very stable. Plan more urgent EGD to rule out significant pathology such as gastric cancer. If his blood level is fairly stable and he is able to drink well plan outpatient EGD next week. Will follow daily. - Lab Results Fish Bones: 01/09/21 10:22 01/09/21 10:22
--- NOTE | 2021-01-09 12:55 | HISTORY & PHYSICAL EXAMINATION ---
Chief Complaint - Chief Complaint Chief Complaint: Abdominal pain, melena, nausea and vomiting. History of Present Illness - Admitted From Admitted From:: [facility] ED - History Obtained From Records Reviewed: yes History obtained from: Patient - History of Present Illness HPI Comment/Other: Patient is a 75-year-old male with medical history significant for coronary artery disease status post triple bypass, hypertension, hyperlipidemia, hypo thyroidism, hypogonadism, GERD who presented to the ED with complaint of abdominal cramps and tarry black stools x1 week. He also reports feeling exhausted nauseous, dry heaving and poor appetite. 2 days ago he tried to stand up and was lightheaded. His daughter caught him otherwise he would have fallen. He finally decided to come in at the behest of his and also because he could not tolerate his symptoms anymore. He denies any previous occurrence. He uses about 600 mg of an NSAID weekly. He drinks about 4 drinks daily. This constitutes 2 ounces of whiskey per drink. He last had a colonoscopy in April 2020. This was done by Dr. Mendez. It was 5-year follow-up colonoscopy because some polyps were noted at the previous colonoscopy. This colonoscopy was unremarkable. He was advised to follow-up in 10 years. Work-up in the ED included a CBC which showed a hemoglobin of 12.3. Stool occult blood was positive. He was admitted for observation and serial monitoring of H&H. At bedside he is resting comfortably. He denies chest pain, dyspnea, fever or chills. He reports mild abdominal pain. The rest of his history is unremarkable. History - Past Medical History Cardiovascular: reports: Hypertension, High cholesterol, Coronary artery disease Neuro: reports: None Endocrine/Autoimmune: reports: HyPOthyroidism, Other (Hypogonadism) GI: reports: GERD, Colon polyps MRSA Hx?: No - Past Surgical History General: reports: Cholecystectomy, Colonoscopy (April 2017) Cardiovascular: reports: CABG (Triple bypass) HEENT: reports: Tonsil/Adenoidectomy - Family & Social History Family History Comment/Other: His mother had a CABG at age 67. His sister, brother, grandmother and cousins have all had problems with gallstones Living arrangement: At home Living Situation: With family Social History Notes: He lives at home with his family. He quit smoking tobacco products in 1985. He had 1-1/2pack/day year history for 20 years. Denies recreational substance use - POLST Patient has POLST: No POLST Status: Full Code Meds/Allgy - Home Medications Home Medications: Ambulatory Orders Medication Instructions Recorded Confirmed Levothyroxine Sodium 50 mcg PO DAILY 04/16/20 01/09/21 [Levothyroxine] Lisinopril [Zestril] 40 mg PO DAILY 04/16/20 01/09/21 Metoprolol Tartrate [Lopressor] 50 mg PO BID 04/16/20 01/09/21 hydroCHLOROthiazide 12.5 mg PO DAILY 04/16/20 01/09/21 [Hydrochlorothiazide] Rosuvastatin Calcium [Crestor] 40 mg PO DAILY 04/23/20 01/09/21 amLODIPine [Norvasc] 5 mg PO DAILY 04/23/20 01/09/21 Ondansetron Odt [Zofran Odt] 4 mg PO Q6H PRN #15 tablet 04/28/20 01/09/21 - Allergies Allergies/Adverse Reactions: Allergies Allergy/AdvReac Type Severity Reaction Status Date / Time Penicillins Allergy Severe Unknown Verified 01/09/21 10:01 Review of Systems - Constitutional Constitutional: reports: Fatigue, Weakness, Poor appetite - Eyes Eyes: denies: Pain, Dipolpia - Ears, Nose & Throat Ears, Nose & Throat: denies: Ear pain, Vertigo - Cardiovascular Cariovascular: reports: Lightheadedness. denies: Irregular heart rate, Chest pain, Edema - Respiratory Respiratory: denies: Cough, Wheezing, SOB at rest, SOB with exertion - Gastrointestinal Gastrointestinal: reports: Abdominal pain, Black stools, Nausea, Reflux/he artburn. denies: Abdominal distention, Constipation, Diarrhea, Rectal bleeding, Bloody stools - Genitourinary Genitourinary: denies: Dysuria, Frequency, Urgency, Hematuria - Musculoskeletal Musculoskeletal: denies: Muscle pain, Back pain, Muscle aches, Stiffness - Integumentary Integumentary: denies: Rash, Pruritis, Lesions - Neurological Neurological: denies: General weakness, Focal weakness, Headache - Psychiatric Psychiatric: denies: Depression, Anxiety - Endocrine Endocrine: denies: Polyuria, Polydypsia - Hematologic/Lymphatic Hematologic/Lymphatic: denies: Anemia, Bruising, Petechiae Prior Level of Functionality: Patient is normally independent of activities of daily living Exam - Vital Signs Vital Signs: Vital Signs x48h Temp Pulse Resp BP Pulse Ox 01/09/21 12:32 72 12 117/58 L 98 01/09/21 11:38 74 14 99/71 100 01/09/21 10:52 72 14 136/73 H 95 01/09/21 09:55 36.5 C 88 18 116/69 98 - Physical Exam General Appearance: positive: Alert, Mild distress Eyes Bilateral: positive: PERRL, EOMI ENT: positive: No signs of dehydration Neck: positive: No JVD, Trachea midline Respiratory: positive: Chest non-tender, No respiratory distress, Breath sounds nml. negative: Wheezes, Rales, Rhonchi Cardiovascular: positive: Regular rate & rhythm, No murmur Abdomen: positive: Non-tender, Nml bowel sounds, No distention. negative: Guarding, Rebound Back: positive: Nml inspection Skin: positive: No rash, Warm, Dry Extremities: positive: Non-tender, Full ROM, Nml appearance, No pedal edema Neurologic/Psychiatric: positive: Oriented x3, Mood/affect nml Conclusion/Plan - Problem List (1) Upper GI bleed Conclusion/Plan: Suspected. ]Etiology undetermined. However patient reports drinking 4 drinks daily which consisted mainly of 2 ounces of alcohol per drink. Patient's stool occult test was positive. He was given Protonix 80 mg IV in the ED. We will continue Protonix 40 mg IV twice daily. Hemoglobin was 12.3. We will trend every [address] Mendez with general surgery was contacted by the ED and saw the patient. His recommendations were: If a significant decrease in patient's hemoglobin, patient would likely undergo EGD. If no significant decrease in hemoglobin, the patient is to follow-up outpatient for an EGD. Patient is currently n.p.o. except for meds, ice chips and sips. (2) Hypertension Conclusion/Plan: Patient is on amlodipine, hydrochlorothiazide, lisinopril and metoprolol. We will continue. (3) Hypothyroidism Conclusion/Plan: On Synthroid 50 mcg p.o. daily. (4) Hyperlipidemia Conclusion/Plan: On rosuvastatin 40 mg p.o. daily (5) History of coronary artery disease Conclusion/Plan: Patient had a triple bypass in 1997. He is on metoprolol tartrate 50 mg p.o. twice daily, rosuvastatin and darrian nopril. (6) Hypogonadism Conclusion/Plan: Patient uses testosterone - Lab Results Fish Bones: 01/09/21 10:22 01/09/21 10:22 Core Measures - Anticipated LOS I expect patient to be DC'd or transferred within 96 hours.: Yes - DVT/VTE - Prophylaxis VTE/DVT Device ordered at admit?: Yes VTE/DVT Prophylaxis med ordered at admit?: No Not Ordered - Medical Reason: Contraindicated (melena)
[2021-01-09] MEDS: SODIUM CHLORIDE 0.9% 1,000 ML IV SCH (14:00)
--- NOTE | 2021-01-09 14:06 | PHARMACY PROGRESS NOTE ---
- Best Possible Medication History Admit Date and Time: 01/09/21 1234 Processed by: Nursing Medication History completed: Yes Patient Interview: Completed Secondary Source(s): Physician records, Pharmacy records, Insurance records As the person ultimately responsible for medication therapy, providers are able to order a medication from an existing home medication list in [facility] via the "Reconcile Routine" prior to Confirmation of that medication by product support analyst. Such practice is discouraged except when the physician, in their clinical judgment, deems that a medical need exists for a medication without regard to previous use.
[2021-01-09 14:25] LABS: B. PARAPERTUSSIS- RESP PCR PAN NOT DETECTED; B. PERTUSSIS- RESP PCR PANEL NOT DETECTED; C. PNEUMONIAE- RESP PCR PANEL NOT DETECTED; CORONAVIRUS 229E-RESP PCR NOT DETECTED; CORONAVIRUS HKU1-RESP PCR NOT DETECTED; CORONAVIRUS NL63-RESP PCR NOT DETECTED; CORONAVIRUS OC43-RESP PCR NOT DETECTED; HUMAN METAPNEUMOVIRUS NOT DETECTED; INFLUENZA A- RESP PCR PANEL NOT DETECTED; INFLUENZA B - RESP PCR PANEL NOT DETECTED; M. PNEUMONIAE- RESP PCR PANEL NOT DETECTED; PARAINFLUENZA VIRUS 1 NOT DETECTED; PARAINFLUENZA VIRUS 2 NOT DETECTED; PARAINFLUENZA VIRUS 3 NOT DETECTED; PARAINFLUENZA VIRUS 4 NOT DETECTED; RHINOVIRUS/ENTEROVIRUS NOT DETECTED; RSV- RESP PCR PANEL NOT DETECTED; SARS-CoV-2 -RESP PCR PANEL NOT DETECTED
[2021-01-09] MEDS: SODIUM CHLORIDE FLUSH 0.9% 10 ML SYRINGE IVP SCH ×2 (17:22→21:26)
[2021-01-09] MEDS ORDERED: ATORVASTATIN 40 MG TABLET PO SCH (21:00)
[2021-01-09 21:15] LABS: HCT - HEMATOCRIT 34.5 % (42.0-52.0); HGB - HEMOGLOBIN 11.5 g/dL (14.0-18.0); MEAN CORPUSCULAR HEMOGLOBIN 33.2 pg (27.0-31.0); MEAN CORPUSCULAR HGB CONC 33.3 g/dL (32.0-36.0); MEAN CORPUSCULAR VOLUME 99.7 fL (80.0-94.0); MEAN PLATELET VOLUME 10.5 fL (7.4-11.4); RED BLOOD COUNT 3.46 10^6/uL (4.70-6.10); RED CELL DISTRIBUTION WIDTH 13.4 % (12.0-15.0); WHITE BLOOD COUNT 8.4 x10^3/uL (4.8-10.8)
[2021-01-09] MEDS: METOPROLOL TARTRATE 50 MG TABLET PO SCH (21:25)
[2021-01-09] MEDS: PANTOPRAZOLE 40 MG VIAL IVP SCH (21:26)
[2021-01-10] MEDS: SODIUM CHLORIDE 0.9% 1,000 ML IV SCH (02:38)
[2021-01-10 05:23] LABS: BASOPHILS % (AUTO) 0.6 %; EOSINOPHILS # (AUTO) 0.3 10^3/uL (0.0-0.7); EOSINOPHILS % (AUTO) 5.1 %; HCT - HEMATOCRIT 29.9 % (42.0-52.0); HGB - HEMOGLOBIN 9.9 g/dL (14.0-18.0); LYMPHOCYTES # (AUTO) 1.5 10^3/uL (1.5-3.5); LYMPHOCYTES % (AUTO) 23.7 %; MEAN CORPUSCULAR HEMOGLOBIN 32.7 pg (27.0-31.0); MEAN CORPUSCULAR HGB CONC 33.1 g/dL (32.0-36.0); MEAN CORPUSCULAR VOLUME 98.7 fL (80.0-94.0); MEAN PLATELET VOLUME 10.5 fL (7.4-11.4); MONOCYTES # (AUTO) 0.6 10^3/uL (0.0-1.0); MONOCYTES % (AUTO) 9.2 %; NEUTROPHILS # (AUTO) 3.9 10^3/uL (1.5-6.6); NEUTROPHILS % (AUTO) 61.2 %; PLT - PLATELET COUNT 151 10^3/uL (130-450); RED BLOOD COUNT 3.03 10^6/uL (4.70-6.10); RED CELL DISTRIBUTION WIDTH 13.2 % (12.0-15.0); WHITE BLOOD COUNT 6.4 x10^3/uL (4.8-10.8)
[2021-01-10 05:31] LABS: CALCIUM 8.7 mg/dL (8.5-10.3); CREATININE 0.9 mg/dL (0.6-1.2); POTASSIUM 3.8 mmol/L (3.5-5.0)
[2021-01-10] MEDS ORDERED: LEVOTHYROXINE 25 MCG TABLET PO SCH (07:00)
[2021-01-10] MEDS: PANTOPRAZOLE 40 MG VIAL IVP SCH (08:26)
[2021-01-10] MEDS: METOPROLOL TARTRATE 50 MG TABLET PO SCH (08:26)
[2021-01-10] MEDS: SODIUM CHLORIDE FLUSH 0.9% 10 ML SYRINGE IVP SCH (08:27)
[2021-01-10] MEDS ORDERED: amLODIPine 5 MG TABLET PO SCH (09:00)
[2021-01-10] MEDS ORDERED: hydroCHLOROthiazide 12.5 MG CAPSULE PO SCH (09:00)
[2021-01-10] MEDS ORDERED: lisinopriL 20 MG TABLET PO SCH (09:00)
[2021-01-10 11:00] LABS: HCT - HEMATOCRIT 33.5 % (42.0-52.0); HGB - HEMOGLOBIN 11.1 g/dL (14.0-18.0); MEAN CORPUSCULAR HEMOGLOBIN 33.2 pg (27.0-31.0); MEAN CORPUSCULAR HGB CONC 33.1 g/dL (32.0-36.0); MEAN CORPUSCULAR VOLUME 100.3 fL (80.0-94.0); MEAN PLATELET VOLUME 10.5 fL (7.4-11.4); RED BLOOD COUNT 3.34 10^6/uL (4.70-6.10); RED CELL DISTRIBUTION WIDTH 13.5 % (12.0-15.0); WHITE BLOOD COUNT 7.5 x10^3/uL (4.8-10.8)
--- NOTE | 2021-01-10 12:45 | PROVIDER PROGRESS NOTE ---
Subjective - Subjective Pt reports feeling: Improved (feeling better. less abdominal pain. he feels up to going home today) Objective - Vital Signs/Intake & Output Reviewed Vital Signs: Yes Vital Signs: Vital Signs x48h Temp Pulse Resp BP BP Pulse Ox 01/10/21 08:26 106/59 L 01/10/21 08:00 36.1 C L 78 18 106/59 L 100 01/10/21 05:09 36.6 C 65 16 105/56 L 96 Intake & Output: Intake & Output 01/07/21 01/08/21 01/09/21 01/10/21 23:59 23:59 23:59 23:59 Intake Total 1000 Output Total 500 Balance 500 - Objective General Appearance: positive: No acute distress, Alert Eyes Bilateral: positive: PERRL, EOMI, No scleral icterus Respiratory: positive: No respiratory distress Abdomen: positive: Non-tender, No distention Neurologic/Psychiatric: positive: Oriented x3 - Lab Results Fish Bones: 01/10/21 10:53 01/10/21 05:01 Other Labs: Lab Results x24hrs 01/10/21 01/10/21 01/10/21 Range/Units 10:53 05:01 05:01 WBC 7.5 6.4 (4.8-10.8) x10^3/uL RBC 3.34 L 3.03 L (4.70-6.10) 10^6/uL Hgb 11.1 L 9.9 L (14.0-18.0) g/dL Hct 33.5 L 29.9 L (42.0-52.0) % MCV 100.3 H 98.7 H (80.0-94.0) fL MCH 33.2 H 32.7 H (27.0-31.0) pg MCHC 33.1 33.1 (32.0-36.0) g/dL RDW 13.5 13.2 (12.0-15.0) % Plt Count 210 151 (130-450) 10^3/uL MPV 10.5 10.5 (7.4-11.4) fL Neut # (Auto) 3.9 (1.5-6.6) 10^3/uL Lymph # (Auto) 1.5 (1.5-3.5) 10^3/uL [place] # (Auto) 0.6 (0.0-1.0) 10^3/uL Eos # (Auto) 0.3 (0.0-0.7) 10^3/uL Baso # (Auto) 0.0 (0.0-0.1) 10^3/uL Absolute Nucleated RBC 0.00 x10^3/uL Nucleated RBC % 0.0 /100WBC Sodium 138 (135-145) mmol/L Potassium 3.8 (3.5-5.0) mmol/L Chloride 104 (101-111) mmol/L Carbon Dioxide 28 (21-32) mmol/L Anion Gap 6.0 (6-13) BUN 30 H (6-20) mg/dL Creatinine 0.9 (0.6-1.2) mg/dL Estimated GFR (MDRD) 83 L (>89) Glucose 100 (70-100) mg/dL Calcium 8.7 (8.5-10.3) mg/dL Nasal Adenovirus (PCR) Nasal B. parapertussis DNA (PCR) Nasal Coronavir 229E PCR Nasal Coronavir HKU1 PCR Nasal Coronavir NL63 PCR Nasal Coronavir OC43 PCR Nasal Enterovir/Rhinovir PCR Nasal Influenza B PCR Nasal Influenza A PCR Nasal Parainfluen 1 PCR Nasal Parainfluen 2 PCR Nasal Parainfluen 3 PCR Nasal Parainfluen 4 PCR Nasal RSV (PCR) Nasal B.pertussis DNA PCR Nasal C.pneumoniae (PCR) Tim Human Metapneumo PCR Nasal M.pneumoniae (PCR) Nasal SARS-CoV-2 (PCR) Blood Type Recheck 01/09/21 01/09/21 01/09/21 Range/Units 21:04 12:27 11:49 WBC 8.4 (4.8-10.8) x10^3/uL RBC 3.46 L (4.70-6.10) 10^6/uL Hgb 11.5 L (14.0-18.0) g/dL Hct 34.5 L (42.0-52.0) % MCV 99.7 H (80.0-94.0) fL MCH 33.2 H (27.0-31.0) pg MCHC 33.3 (32.0-36.0) g/dL RDW 13.4 (12.0-15.0) % Plt Count 194 (130-450) 10^3/uL MPV 10.5 (7.4-11.4) fL Neut # (Auto) (1.5-6.6) 10^3/uL Lymph # (Auto) (1.5-3.5) 10^3/uL [place] # (Auto) (0.0-1.0) 10^3/uL Eos # (Auto) (0.0-0.7) 10^3/uL Baso # (Auto) (0.0-0.1) 10^3/uL Absolute Nucleated RBC x10^3/uL Nucleated RBC % /100WBC Sodium (135-145) mmol/L Potassium (3.5-5.0) mmol/L Chloride (101-111) mmol/L Carbon Dioxide (21-32) mmol/L Anion Gap (6-13) BUN (6-20) mg/dL Creatinine (0.6-1.2) mg/dL Estimated GFR (MDRD) (>89) Glucose (70-100) mg/dL Calcium (8.5-10.3) mg/dL Nasal Adenovirus (PCR) NOT DETECTED Nasal B. parapertussis DNA (PCR) NOT DETECTED Nasal Coronavir 229E PCR NOT DETECTED Nasal Coronavir HKU1 PCR NOT DETECTED Nasal Coronavir NL63 PCR NOT DETECTED Nasal Coronavir OC43 PCR NOT DETECTED Nasal Enterovir/Rhinovir PCR NOT DETECTED Nasal Influenza B PCR NOT DETECTED Nasal Influenza A PCR NOT DETECTED Nasal Parainfluen 1 PCR NOT DETECTED Nasal Parainfluen 2 PCR NOT DETECTED Nasal Parainfluen 3 PCR NOT DETECTED Nasal Parainfluen 4 PCR NOT DETECTED Nasal RSV (PCR) NOT DETECTED Nasal B.pertussis DNA PCR NOT DETECTED Nasal C.pneumoniae (PCR) NOT DETECTED Tim Human Metapneumo PCR NOT DETECTED Nasal M.pneumoniae (PCR) NOT DETECTED Nasal SARS-CoV-2 (PCR) NOT DETECTED Blood Type Recheck A NEGATIVE Assessment/Plan - Problem List (1) Upper GI bleed Impression: feeling improved. h and h stable he feels up to going home today plan EGD monday
--- NOTE | 2021-01-10 13:04 | DISCHARGE SUMMARY ---
Discharge Summary Admit Date: 01/09/21 Discharge Date: 01/10/21 Discharging Provider: Gianna Lee Primary Care Provider: Nehemias Arellano Code Status: Attempt Resuscitation Condition at Discharge: Stable Discharge Disposition: 01 Home, Self Care - DIAGNOSES Admission Diagnoses: Upper GI Bleed Hypertension Hypothyroidism Hyperlipidemia Hx of Coronary Artery Disease Hypogonadism Discharge Diagnoses with Status of Each Condition: Upper GI Bleed: Acute/ Subacute. Stable. Protonix bid. EGD on Monday01/15/21 outpatient Hypertension: Chronic. Stable Hypothyroidism: Chronic. Stable Hyperlipidemia: Chronic. Stable Hx of Coronary Artery Disease: Chronic. Stable Hypogonadism: Chronic. Stable - HPI History of Present Illness: Patient is a 75-year-old male with medical history significant for coronary artery disease status post triple bypass, hypertension, hyperlipidemia, hypothyroidism, hypogonadism, GERD who presented to the ED with complaint of abdominal cramps and tarry black stools x1 week. He also reports feeling exhausted nauseous, dry heaving and poor appetite. 2 days ago he tried to stand up and was lightheaded. His daughter caught him otherwise he would have fallen. He finally decided to come in at the behest of his and also because he could not tolerate his symptoms anymore. He denies any previous occurrence. He uses about 600 mg of an NSAID weekly. He drinks about 4 drinks daily. This constitutes 2 ounces of whiskey per drink. He last had a colonoscopy in April 2020. This was done by Dr. Mendez. It was 5-year follow-up colonoscopy because some polyps were noted at the previous colonoscopy. This colonoscopy was unremarkable. He was advised to follow-up in 10 years. Work-up in the ED included a CBC which showed a hemoglobin of 12.3. Stool occult blood was positive. He was admitted for observation and serial monitoring of H&H. At bedside he is resting comfortably. He denies chest pain, dyspnea, fever or chills. He reports mild abdominal pain. The rest of his history is unremarkable. - HOSPITAL COURSE Hospital Course: He was made n.p.o. at time of admission and placed on IV hydration. He was also put on Protonix 40 mg IV twice daily. His H&H was trended x3. Initial hemoglobin was 12.3 then 9.9 then 11. Consequently was determined to be stable. He was discharged following day with plans to follow-up with Dr. Mendez of general surgery for an EGD on 01/15/2021. He was advised to avoid acidic foods, NSAIDs, spicy food and alcohol as that could be contributing factors to his symptoms of heartburn and possible peptic ulcers. The rest of his stay was unremarkable. He was discharged home with a prescription of Protonix 40 mg p.o. twice daily. He was discharged in stable condition. His home medications were resumed at home doses. - ALLERGIES Allergies/Adverse Reactions: Allergies Allergy/AdvReac Type Severity Reaction Status Date / Time Penicillins Allergy Severe Unknown Verified 01/09/21 10:01 - MEDICATIONS Home Medications: Ambulatory Orders Medication Instructions Recorded Confirmed Levothyroxine Sodium 50 mcg PO DAILY 04/16/20 01/09/21 [Levothyroxine] Lisinopril [Zestril] 40 mg PO DAILY 04/16/20 01/09/21 Metoprolol Tartrate [Lopressor] 50 mg PO BID 04/16/20 01/09/21 hydroCHLOROthiazide 12.5 mg PO DAILY 04/16/20 01/09/21 [Hydrochlorothiazide] Rosuvastatin Calcium [Crestor] 40 mg PO DAILY 04/23/20 01/09/21 amLODIPine [Norvasc] 5 mg PO DAILY 04/23/20 01/09/21 Ondansetron Odt [Zofran Odt] 4 mg PO Q6H PRN #15 tablet 04/28/20 01/09/21 Pantoprazole [Protonix] 40 mg PO BID 30 Days #60 tablet 01/10/21 - PHYSICAL EXAM AT DISCHARGE General Appearance: positive: No acute distress, Alert Eyes Bilateral: positive: PERRL, EOMI ENT: positive: No signs of dehydration Neck: positive: No JVD, Trachea midline Respiratory: positive: Chest non-tender, No respiratory distress, Breath sounds nml. negative: Wheezes, Rales, Rhonchi Cardiovascular: positive: Regular rate & rhythm, No murmur Abdomen: positive: Non-tender, Nml bowel sounds, No distention. negative: Guarding, Rebound Skin: positive: Color nml, No rash, Warm, Dry Extremities: positive: Non-tender, Full ROM, Nml appearance, No pedal edema Neurologic/Psychiatric: positive: Oriented x3, Mood/affect nml - LABS Result Diagrams: 01/10/21 10:53 01/10/21 05:01 - TIME SPENT Time Spent in Discharge (Minutes): 25
--- NOTE | 2021-01-10 13:08 | Discharge Plan ---
Discharge Plan Problem Reviewed?: Yes Disposition: Home, Self Care Condition: Stable Prescriptions: Pantoprazole [Protonix] 40 mg PO BID 30 Days #60 tablet Diet: Cardiac Activity Restrictions: Activity as Tolerated Health Concerns: You were admitted with complaint of dark tarry stools, abdominal cramps and dizziness. Work-up included a stool occult test which was positive. You were admitted for monitoring of your hemoglobin. This was done over a 24-hour. And noted to be stable. By discharge her hemoglobin was 11. You are being discharged in stable condition. He was seen by general surgery and the plan is for follow-up in the outpatient for an EGD on 01/15/2021. You have been advised to avoid things that can exacerbate heartburn or cause ulcers. Acidic foods like orange juice and to some extent tomatoes, spicy food and alcohol can be contributing factors. You expressed understanding and agreeable with the plan. You'll be discharged with a prescription of Protonix 40 mg p.o. twice daily. No Smoking: If you smoke, Please STOP! Call for help. Follow-up with: Nehemias Arellano MD [Primary Care Provider] -
[2021-01-10 13:13] VITALS: BP 105/51
== END 2021-01-10 13:25 | disposition home or self-care (01) ==
LOC: ED 09:49 → MS3 12:34
PROVIDERS: ADMIT Internal Medicine; ATTEND Internal Medicine
DX: K92.2 Gastrointestinal hemorrhage, unspecified (principal); K21.9 Gastro-esophageal reflux disease without esophagitis; I25.10 Atherosclerotic heart disease of native coronary artery without angina pectoris; I10 Essential (primary) hypertension; E78.5 Hyperlipidemia, unspecified; E03.9 Hypothyroidism, unspecified; E29.1 Testicular hypofunction; Z20.822 Contact with and (suspected) exposure to COVID-19; Z95.1 Presence of aortocoronary bypass graft; Z87.891 Personal history of nicotine dependence; Z79.899 Other long term (current) drug therapy; Z86.010 Personal history of colon polyps
CPT/HCPCS: 36415; 80048; 80053; 81003; 82272; 83690; 85025; 85027; 86850; 86900; 86901; 87631; 96374; 96376; 99284; 99285; A9270; G0378; 0202U; 81001; 87086

== ENCOUNTER 2021-01-11 11:27 | Outpatient (CLI) | payer MEDICARE, OTHER ==
[2021-01-11 12:21] LABS: BASOPHILS % (AUTO) 0.6 %; EOSINOPHILS # (AUTO) 0.6 10^3/uL (0.0-0.7); EOSINOPHILS % (AUTO) 8.8 %; HCT - HEMATOCRIT 32.6 % (42.0-52.0); LYMPHOCYTES # (AUTO) 1.3 10^3/uL (1.5-3.5); MEAN CORPUSCULAR HEMOGLOBIN 33.3 pg (27.0-31.0); MEAN CORPUSCULAR HGB CONC 33.7 g/dL (32.0-36.0); MEAN CORPUSCULAR VOLUME 98.8 fL (80.0-94.0); MEAN PLATELET VOLUME 11.3 fL (7.4-11.4); MONOCYTES # (AUTO) 0.5 10^3/uL (0.0-1.0); MONOCYTES % (AUTO) 7.4 %; NEUTROPHILS % (AUTO) 62.7 %; PLT - PLATELET COUNT 207 10^3/uL (130-450); RED CELL DISTRIBUTION WIDTH 13.1 % (12.0-15.0); WHITE BLOOD COUNT 6.4 x10^3/uL (4.8-10.8)
[2021-01-11 13:39] LABS: ALBUMIN 4.1 g/dL (3.2-5.5); ALBUMIN/GLOBULIN RATIO 1.9 (1.0-2.2); ALKALINE PHOSPHATASE 50 IU/L (42-121); ALT ALANINE AMINOTRANSFERASE 46 IU/L (10-60); AST ASPARTATE AMINOTRANSFERASE 45 IU/L (10-42); BILIRUBIN,TOTAL 1.1 mg/dL (0.2-1.0); BUN - BLOOD UREA NITROGEN 20 mg/dL (6-20); CALCIUM 9.2 mg/dL (8.5-10.3); CARBON DIOXIDE - CO2 28 mmol/L (21-32); CHLORIDE 97 mmol/L (101-111); CHOL/HDL RATIO 2.4 (<5.0); CHOLESTEROL 96 mg/dL; CREATININE 0.9 mg/dL (0.6-1.2); GFR - MDRD 83 (>89); GLUCOSE 114 mg/dL (70-100); HDL CHOLESTEROL 40 mg/dL; LDL CHOLESTEROL,CALCULATED 34 mg/dL; LDL/HDL RATIO 0.9 (<3.6); POTASSIUM 3.9 mmol/L (3.5-5.0); SODIUM 133 mmol/L (135-145); TOTAL PROTEIN 6.3 g/dL (6.7-8.2); TRIGLYCERIDES 108 mg/dL; VLDL CHOLESTEROL 22 mg/dL
[2021-01-11 13:44] LABS: THYROID STIMULATING HORMONE 3.03 uIU/mL (0.34-5.60)
[2021-01-11 13:46] LABS: FREE T4 (FREE THYROXINE) 0.91 ng/dL (0.58-1.64)
[2021-01-11 13:48] LABS: PROLACTIN 10.98 ng/mL
== END 2021-01-11 11:28 ==
LOC: LAB.WCP 11:27
PROVIDERS: ATTEND Internal Medicine
DX: E03.9 Hypothyroidism, unspecified (principal); I25.10 Atherosclerotic heart disease of native coronary artery without angina pectoris; E23.0 Hypopituitarism; E29.1 Testicular hypofunction
CPT/HCPCS: 36415; 80053; 80061; 84146; 84403; 84439; 84443; 85025; G0103; 83721; 84153

== ENCOUNTER 2021-01-14 06:20 | Day surgery (SDC) | payer MEDICARE, OTHER ==
[2021-01-14] MEDS ORDERED: LACTATED RINGERS 1,000 ML IV ONE (06:26)
--- NOTE | 2021-01-14 07:16 | ANESTHESIA ---
Pre-Anesthesia VS, & Labs - Diagnosis epigastric pain, black stool - Procedure EGD Vital Signs: Temp Pulse Resp BP Pulse Ox 35.9 C L 88 16 83/53 L 98 01/14/21 06:31 01/14/21 06:31 01/14/21 06:31 01/14/21 06:31 01/14/21 06:31 Height: 5 ft 10 in Weight (kg): 92 kg Body Mass Index: 29.0 BMI Classification: Overweight - NPO >8 hours - Lab Results Lab results reviewed: Yes Home Medications and Allergies Levothyroxine Sodium [Levothyroxine] 50 mcg PO DAILY 04/16/20 Lisinopril [Zestril] 40 mg PO DAILY 04/16/20 Metoprolol Tartrate [Lopressor] 50 mg PO BID 04/16/20 hydroCHLOROthiazide [Hydrochlorothiazide] 12.5 mg PO DAILY 04/16/20 Rosuvastatin Calcium [Crestor] 40 mg PO DAILY 04/23/20 amLODIPine [Norvasc] 5 mg PO DAILY 04/23/20 Allergies/Adverse Reactions: Allergies Allergy/AdvReac Type Severity Reaction Status Date / Time Penicillins Allergy Severe Unknown Verified 01/09/21 10:01 ciprofloxacin AdvReac Unknown Verified 01/14/21 06:45 Anes History & Medical History - Anesthetic History Anesthesia Complications: reports: No previous complications Family history of Anesthesia Complications: Denies Family history of Malignant Hyperthermia: Denies - Medical History Cardiovascular: reports: Hypertension, High cholesterol, Coronary artery disease Pulmonary: reports: Asthma Gastrointestinal: reports: GERD, Colon polyps Neuro: reports: None Endocrine/Autoimmune: reports: HyPOthyroidism, Other Blood Disorders: reports: None Smoking Status: Former smoker - Surgical History General: reports: Cholecystectomy, Colonoscopy Eyes Ears Nose Throat (EENT): reports: Cataracts, Tonsil/Adenoidectomy Cardiothoracic: reports: CABG, Cardiac catheterization Exam General: Alert, Oriented x3, Cooperative Dental: Dentures full Upper, Dentures full Lower Mouth Openin Fingerbreadth Neck Mobility: Normal Mallampati classification: II Thyromental Distance: 4-6 cm Respiratory: Lungs clear, Normal breath sounds, No respiratory distress Cardiovascular: Regular rate Neurological: Normal speech Mental/Cognitive Status: Alert/Oriented X3, Normal for patient Cognitive Status: Within normal limits Plan Anesthesia Type: Total IV Consent for Procedure(s) Verified and Reviewed: Yes Code Status: Attempt Resuscitation ASA classification: 3-Severe systemic disease Is this case an emergency?: No
[2021-01-14] MEDS ORDERED: LIDOCAINE-PF 2% 10 ML AMP SUBQ ONE (07:21)
[2021-01-14] MEDS ORDERED: PROPOFOL 500 MG/50 ML 500 MG/50 ML VIAL ONE (07:21)
[2021-01-14 08:31] VITALS: BP 88/41
[2021-01-14] MEDS ORDERED: LACTATED RINGERS 400 ML IV ONE (08:46)
--- NOTE | 2021-01-14 09:35 | ANESTHESIA POST OP EVALUATION ---
Anesthesia Post Eval - Post Anesthesia Eval Vitals: Last Vital Signs Temp 36.4 C L 01/14/21 08:31 Pulse 63 01/14/21 08:31 Resp 16 01/14/21 08:31 BP 88/41 L 01/14/21 08:31 Pulse Ox 100 01/14/21 08:31 CV Function Including HR & BP: Stable Pain Control: Satisfactory Nausea & Vomiting: Negative Mental Status: Baseline Respiratory Status: Airway Patent Hydration Status: Satisfactory Anesthesia Complications: None
== END 2021-01-14 06:21 | disposition home or self-care (01) ==
LOC: SDS 06:20
PROVIDERS: ATTEND Surgery
PROC: 0DB78ZX Excision of Stomach, Pylorus, Via Natural or Artificial Opening Endoscopic, Diagnostic (ICD-10-PCS; principal; 2021-01-14 07:30)
DX: K25.9 Gastric ulcer, unspecified as acute or chronic, without hemorrhage or perforation (principal); K26.9 Duodenal ulcer, unspecified as acute or chronic, without hemorrhage or perforation; I10 Essential (primary) hypertension; E78.00 Pure hypercholesterolemia, unspecified; I25.10 Atherosclerotic heart disease of native coronary artery without angina pectoris; J45.909 Unspecified asthma, uncomplicated; K21.9 Gastro-esophageal reflux disease without esophagitis; E03.9 Hypothyroidism, unspecified; Z86.010 Personal history of colon polyps; Z87.891 Personal history of nicotine dependence
CPT/HCPCS: 43239; J7120

== ENCOUNTER 2022-01-26 11:05 | Outpatient (CLI) | payer MEDICARE, OTHER ==
[2022-01-26 17:52] LABS: CALCIUM 9.8 mg/dL (8.5-10.3); CREATININE 0.9 mg/dL (0.6-1.2); POTASSIUM 4.1 mmol/L (3.5-5.0)
[2022-01-26 17:55] LABS: CREATININE,URINE 126.9 mg/dL; MICROALBUM/CREATININE RATIO,UR 132.4 ug/mg (<30.0); MICROALBUMIN,URINE 16.8 mg/dL (0-300.0)
== END 2022-01-26 11:06 | disposition home or self-care (01) ==
LOC: LAB.N 11:05
PROVIDERS: ATTEND Internal Medicine
DX: I10 Essential (primary) hypertension (principal)
CPT/HCPCS: 36415; 80048; 82043; 82570

== ENCOUNTER 2022-10-31 08:02 | Emergency (ER) | payer MEDICARE ==
--- NOTE | 2022-10-31 08:12 | ED Physician Documentation ---
PD HPI DYSPNEA - Stated complaint Stated Complaint: SOA,CHEST PX - History obtained from History obtained from: Patient - Additional information Additional information: 77-year-old gentleman with history of [place] in 1997 with subsequent three-vessel bypass at that time, hypertension, hyperlipidemia, hypothyroidism, GERD presents after referral from the walk-in clinic for chest pain and shortness of breath. For the last 3 days or so he has a sharp chest pain that he really only notices if he is laying flat and takes a deep breath. It is associated with shortness of breath and unintentional weight gain but no pedal edema. He did start Jardiance couple weeks ago and he wonders if it might be related. He is also been using weed killer, "[place]" in the yard and wonders if that might be associated. At the urgent care he was noted to have an unremarkable EKG and was administered aspirin there prior to arrival. PD PAST MEDICAL HISTORY - Past Medical History Cardiovascular: Hypertension, High cholesterol, Coronary artery disease Respiratory: Asthma Neuro: None Endocrine/Autoimmune: HyPOthyroidism, Other GI: GERD, Colon polyps - Past Surgical History General: Cholecystectomy, Colonoscopy Cardiovascular: CABG, Cardiac catheterization HEENT: Cataracts, Tonsil/Adenoidectomy - Present Medications Home Medications: Ambulatory Orders Medication Instructions Recorded Confirmed Levothyroxine Sodium 50 mcg PO DAILY 04/16/20 01/14/21 Lisinopril [Zestril] 40 mg PO DAILY 04/16/20 01/14/21 Metoprolol Tartrate [Lopressor] 50 mg PO BID 04/16/20 01/14/21 hydroCHLOROthiazide 12.5 mg PO DAILY 04/16/20 01/14/21 [Hydrochlorothiazide] Rosuvastatin Calcium [Crestor] 40 mg PO DAILY 04/23/20 01/14/21 amLODIPine [Norvasc] 5 mg PO DAILY 04/23/20 01/14/21 Ondansetron Odt [Zofran Odt] 4 mg PO Q6H PRN #15 tablet 04/28/20 01/14/21 Pantoprazole [Protonix] 40 mg PO BID 30 Days #60 tablet 01/10/21 01/14/21 - Allergies Allergies/Adverse Reactions: Allergies Allergy/AdvReac Type Severity Reaction Status Date / Time Penicillins Allergy Severe Unknown Verified 01/09/21 10:01 ciprofloxacin AdvReac Unknown Verified 01/14/21 06:45 - Social History Smoking Status: Former smoker - POLST Patient has POLST: No POLST Status: Full Code PD ED PE NORMAL - Vitals Vital signs reviewed: Yes - General General: Alert and oriented X 3, No acute distress - Neck Neck: Supple, no meningeal sign, No bony TTP - Cardiac Cardiac: RRR, No murmur - Respiratory Respiratory: No respiratory distress, Clear bilaterally - Abdomen Abdomen: Non tender - Derm Derm: Normal color, Warm and dry - Extremities Extremities: No edema, No calf tenderness / cord - Neuro Neuro: Alert and oriented X 3, Normal speech Results - Vitals Vitals: Vital Signs - 24 hr 10/31/22 10/31/22 10/31/22 08:11 09:21 09:32 Temperature 36.8 C Heart Rate 69 57 L 55 L Respiratory 18 18 18 Rate Blood Pressure 184/89 H 142/76 H 146/85 H O2 Saturation 100 97 98 Oxygen O2 Source Room air - EKG (time done) 0809 EKG releavant findings:: EKG personally interpreted by author of this note. Relevant findings are: Rate: Rate (enter#) (58) Rhythm: NSR [place]: Normal Intervals: Normal AR Ischemia: Q waves (III/F). No: ST elevation c/w ischemia, ST depression Compare to prior EKG: Old EKG unavailable Computer interpretation: Agree with computer - Labs Labs: Laboratory Tests 10/31/22 10/31/22 10/31/22 08:22 08:22 08:22 WBC 6.9 RBC 4.61 L Hgb 15.1 Hct 45.5 MCV 98.7 H MCH 32.8 H MCHC 33.2 RDW 13.2 Plt Count 150 MPV 10.6 Neut # (Auto) 5.2 Lymph # (Auto) 0.7 L [place] # (Auto) 0.7 Eos # (Auto) 0.2 Baso # (Auto) 0.0 Absolute Nucleated RBC 0.00 Nucleated RBC % 0.0 D-Dimer Sodium 136 Potassium 4.0 Chloride 101 Carbon Dioxide 26 Anion Gap 9.0 BUN 12 Creatinine 0.8 Estimated GFR (MDRD) 94 Glucose 96 Calcium 9.5 Total Bilirubin 0.8 AST 27 ALT 27 Alkaline Phosphatase 66 Troponin I High Sens 8.7 B-Natriuretic Peptide Total Protein 7.1 Albumin 4.4 Globulin 2.7 Albumin/Globulin Ratio 1.6 Lipase 36 10/31/22 10/31/22 08:22 08:22 WBC RBC Hgb Hct MCV MCH MCHC RDW Plt Count MPV Neut # (Auto) Lymph # (Auto) [place] # (Auto) Eos # (Auto) Baso # (Auto) Absolute Nucleated RBC Nucleated RBC % D-Dimer 251.1 Sodium Potassium Chloride Carbon Dioxide Anion Gap BUN Creatinine Estimated GFR (MDRD) Glucose Calcium Total Bilirubin AST ALT Alkaline Phosphatase Troponin I High Sens B-Natriuretic Peptide 121 H Total Protein Albumin Globulin Albumin/Globulin Ratio Lipase - Rads (name of study) 1v CXR-NAD Relevant Findings:: Final report received, EMP independent interpretation of test PD Medical Decision Making - ED course ED course: 77-year-old gentleman who has had mild chest pain with trouble breathing worse in the supine position. He has no evidence of ischemia on work-up.. D-dimer was negative. CBC grossly unremarkable. CMP normal. BNP with modest elevation. He started Jardiance a couple of weeks ago and at the same time stopped the hydrochlorothiazide. Stopping of the hydrochlorothiazide may be related to his weight gain and feeling of fluid overload although he is not in overt CHF but reasonable to restart the hydrochlorothiazide. He has a prescription and does not require one here. Departure - Departure Disposition: 01 Home, Self Care Clinical Impression: Chest pain Qualifiers: Chest pain type: chest pain on breathing Qualified Code(s): R07.1 - Chest pain on breathing Dyspnea Qualifiers: Dyspnea type: dyspnea on exertion Qualified Code(s): R06.09 - Other forms of dyspnea Condition: Good Record reviewed to determine appropriate education?: Yes Instructions: ED Chest Pain NonCardiac Comments: As discussed, the only pertinent positive finding was a very mild elevation of BNP which could be consistent with very mild heart failure/fluid overload. Otherwise your chest x-ray and cardiac enzymes and a D-dimer which is a screening test for blood clots was negative. Go ahead and restart your hydrochlorothiazide at the prior dose and I think this will be helpful for you. Call your doctor to arrange a follow-up appointment, make the next available appointment. In the interim, return anytime if worse or if new symptoms develop. Forms: PCP List Discharge Date/Time: 10/31/22 09:32
[2022-10-31 08:41] LABS: BASOPHILS % (AUTO) 0.3 %; EOSINOPHILS # (AUTO) 0.2 10^3/uL (0.0-0.7); EOSINOPHILS % (AUTO) 3.1 %; HCT - HEMATOCRIT 45.5 % (42.0-52.0); HGB - HEMOGLOBIN 15.1 g/dL (14.0-18.0); LYMPHOCYTES # (AUTO) 0.7 10^3/uL (1.5-3.5); LYMPHOCYTES % (AUTO) 10.8 %; MEAN CORPUSCULAR HEMOGLOBIN 32.8 pg (27.0-31.0); MEAN CORPUSCULAR HGB CONC 33.2 g/dL (32.0-36.0); MEAN CORPUSCULAR VOLUME 98.7 fL (80.0-94.0); MEAN PLATELET VOLUME 10.6 fL (7.4-11.4); MONOCYTES # (AUTO) 0.7 10^3/uL (0.0-1.0); MONOCYTES % (AUTO) 10.5 %; NEUTROPHILS # (AUTO) 5.2 10^3/uL (1.5-6.6); PLT - PLATELET COUNT 150 10^3/uL (130-450); RED BLOOD COUNT 4.61 10^6/uL (4.70-6.10); RED CELL DISTRIBUTION WIDTH 13.2 % (12.0-15.0); WHITE BLOOD COUNT 6.9 x10^3/uL (4.8-10.8)
[2022-10-31 09:04] LABS: ALBUMIN 4.4 g/dL (3.2-5.5); ALBUMIN/GLOBULIN RATIO 1.6 (1.0-2.2); BILIRUBIN,TOTAL 0.8 mg/dL (0.2-1.0); CALCIUM 9.5 mg/dL (8.5-10.3); CREATININE 0.8 mg/dL (0.6-1.3); TOTAL PROTEIN 7.1 g/dL (6.4-8.9)
[2022-10-31 09:35] VITALS: BP 146/85
--- NOTE | 2022-10-31 13:32 | XRAY Report ---
PROCEDURE: Chest 1 View X-Ray INDICATIONS: Chest Pain TECHNIQUE: One view of the chest was acquired. COMPARISON: None. FINDINGS: Surgical changes and devices: Median sternotomy wires are seen. Lungs and pleura: No pleural effusions or pneumothorax. Lungs are clear. Mediastinum: Mediastinal contours appear normal. Heart size is normal. Bones and chest wall: No suspicious bony lesions. Overlying soft tissues appear unremarkable. IMPRESSION: No acute cardiopulmonary process. Reviewed by: Dougie Robles MD on 10/31/2022 8:43 AM PDT Approved by: Dougie Robles MD on 10/31/2022 8:43 AM PDT Station ID: [id number]
== END 2022-10-31 09:32 | disposition home or self-care (01) ==
LOC: ED 08:02
DX: R07.1 Chest pain on breathing (principal); R06.09 Other forms of dyspnea; I10 Essential (primary) hypertension; Z87.891 Personal history of nicotine dependence
CPT/HCPCS: 36415; 80053; 83690; 83880; 84484; 85025; 85379; 93005; 99283; 99284

== ENCOUNTER 2023-10-26 08:26 | Outpatient (CLI) | payer OTHER ==
[2023-10-26 08:44] LABS: BASOPHILS % (AUTO) 0.7 %; EOSINOPHILS # (AUTO) 0.4 10^3/uL (0.0-0.7); EOSINOPHILS % (AUTO) 7.1 %; HCT - HEMATOCRIT 49.1 % (42.0-52.0); HGB - HEMOGLOBIN 16.5 g/dL (14.0-18.0); LYMPHOCYTES # (AUTO) 1.1 10^3/uL (1.5-3.5); LYMPHOCYTES % (AUTO) 20.8 %; MEAN CORPUSCULAR HEMOGLOBIN 32.8 pg (27.0-31.0); MEAN CORPUSCULAR HGB CONC 33.6 g/dL (32.0-36.0); MEAN CORPUSCULAR VOLUME 97.6 fL (80.0-94.0); MEAN PLATELET VOLUME 10.1 fL (7.4-11.4); MONOCYTES # (AUTO) 0.6 10^3/uL (0.0-1.0); MONOCYTES % (AUTO) 11.3 %; NEUTROPHILS # (AUTO) 3.3 10^3/uL (1.5-6.6); NEUTROPHILS % (AUTO) 59.7 %; PLT - PLATELET COUNT 202 10^3/uL (130-450); RED BLOOD COUNT 5.03 10^6/uL (4.70-6.10); RED CELL DISTRIBUTION WIDTH 13.2 % (12.0-15.0); WHITE BLOOD COUNT 5.5 x10^3/uL (4.8-10.8)
[2023-10-26 08:56] LABS: ALBUMIN 4.8 g/dL (3.2-5.5); ALBUMIN/GLOBULIN RATIO 1.7 (1.0-2.2); ALKALINE PHOSPHATASE 69 IU/L (42-121); ALT ALANINE AMINOTRANSFERASE 45 IU/L (10-60); AST ASPARTATE AMINOTRANSFERASE 44 IU/L (10-42); BILIRUBIN,TOTAL 1.1 mg/dL (0.2-1.0); BUN - BLOOD UREA NITROGEN 21 mg/dL (6-20); CALCIUM 10.1 mg/dL (8.5-10.3); CARBON DIOXIDE - CO2 27 mmol/L (21-32); CHLORIDE 99 mmol/L (101-111); CHOL/HDL RATIO 2.1 (<5.0); CHOLESTEROL 164 mg/dL; CREATININE 0.9 mg/dL (0.6-1.3); GFR - MDRD 82 (>89); GLUCOSE 119 mg/dL (74-104); HDL CHOLESTEROL 80 mg/dL; LDL CHOLESTEROL,CALCULATED 61 mg/dL; LDL/HDL RATIO 0.8 (<3.6); SODIUM 133 mmol/L (135-145); TOTAL PROTEIN 7.6 g/dL (6.4-8.9); TRIGLYCERIDES 115 mg/dL; VLDL CHOLESTEROL 23 mg/dL
[2023-10-26 09:02] LABS: MICROALBUM/CREATININE RATIO,UR 240.3 ug/mg (<30.0); MICROALBUMIN,URINE 34.6 mg/dL
[2023-10-26 09:11] LABS: THYROID STIMULATING HORMONE 3.59 uIU/mL (0.34-5.60)
== END 2023-10-26 08:27 | disposition home or self-care (01) ==
LOC: LAB 08:26
PROVIDERS: ATTEND Internal Medicine
DX: R73.01 Impaired fasting glucose (principal); Z51.81 Encounter for therapeutic drug level monitoring; R80.9 Proteinuria, unspecified; E29.1 Testicular hypofunction; E03.9 Hypothyroidism, unspecified; I10 Essential (primary) hypertension
CPT/HCPCS: 36415; 80053; 80061; 82043; 82570; 83721; 84153; 84403; 84443; 85025

== ENCOUNTER 2023-10-26 08:40 | Outpatient (CLI) | payer OTHER ==
--- NOTE | 2023-10-26 16:16 | Ultrasound Report ---
PROCEDURE: Aorta Screening INDICATIONS: HX OF SMOKING, AAA SCREENING TECHNIQUE: Real time scanning was performed of the aorta and iliac arteries, with image documentatio n. COMPARISON: None. FINDINGS: Aorta: Proximal aortic diameter measures 2.7 x 2.6 cm. Mid-aorta measures 2 x 2.2 cm. Distal aorti c diameter is 2.2 x 2.3 cm. Iliac arteries: Right common iliac artery measures 1.3 x 1.5 cm. Left common iliac artery measures 1.4 x 1.5 cm. Scattered atherosclerotic plaque. 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 Recommend repeat imaging in 5 years. 2.Bilateral common iliac arteries are normal in caliber, where visualized. Recommended intervals for follow-up imaging of ectatic aortas and abdominal aortic aneurysms, per ACR consensus guidelines: 2.5-2.9 cm: 5 years 3.0-3.4 cm: 3 years 3.5-3.9 cm: 2 years 4.0-4.4 cm: 1 year 4.5-4.9 cm: 6 months + endovascular referral 5.0-5.5 cm: 3-6 months + endovascular referral Reviewed by: Izabel Mora MD on 10/26/2023 4:15 PM PDT Approved by: Izabel Mora MD on 10/26/2023 4:15 PM PDT Station ID: [id number]
== END 2023-10-26 08:41 | disposition home or self-care (01) ==
LOC: DI 08:40
PROVIDERS: ATTEND Nurse Practitioner Primary Care
DX: Z13.6 Encounter for screening for cardiovascular disorders (principal); I77.811 Abdominal aortic ectasia; Z87.891 Personal history of nicotine dependence